=== PATIENT | male | born 1970 | race Caucasian/White ===

== ENCOUNTER 2021-09-19 11:15 | Emergency (ER) | payer OTHER, SELFPAY ==
[2021-09-19 11:22] VITALS: BP 151/100; PULSE 117; RESP 18; TEMP 36.6; O2SAT 98; BMI 22.4
--- NOTE | 2021-09-19 11:31 | ED_ITS ---
HPI - Overdose General Chief Complaint: Overdose Stated Complaint: FOUND UNRESP,NARCAN GIVEN, ALERT/ORIENTED NOW Time Seen by Provider: 09/19/21 11:29 Source: patient and EMS Mode of arrival: EMS Limitations: no limitations History of Present Illness HPI Narrative: 51 y/o male presents to the ER for evaluation after he accidentally overdosed on his prescribed Percocet mediation. He reports mixing them with alcohol. He reports drinking very heavily last night at least 10 nips of alcohol. He does not recall how many narcotic pills he took last night after he was drinking. He has little recollection at all of the evening. His friend found him unresponsive this morning and started CPR. On EMS arrival he was agonally breathing, given 2 doses of Narcan with improvement in respirations and mental status. He arrives to the ER AAO X3, nauseous and tachycardic. complaint: accidental overdose Onset (ago): unknown Intent: other (Life stressor) How Overdose Was Discovered: called family/friend Context: Accidental Overdose: was drinking then took pills Associated symptoms: depression Treatments Prior to Arrival: narcan Related Data Allergies Allergy/AdvReac Type Severity Reaction Status Date / Time No Known Allergies Allergy Verified 09/19/21 11:29 Review of Systems Review of Systems: Constitutional: No Fever, No Chills ENT/Mouth: No sore throat, No Rhinorrhea, No Swallowing Difficulty Cardiovascular: No Chest Pain, No SOB, No Orthopnea, No Edema Respiratory: No Cough, No Sputum, No Wheezing, No dyspnea Gastrointestinal: + Nausea, No Vomiting, No Diarrhea, No abdominal Pain Musculoskeletal: + joint pain, + Myalgias Skin: No Skin Lesions, No rash Neuro: No Weakness, No Numbness, No Dizziness, + Headache Psych: + Anxiety/Panic, + Depression, No SI Heme/Lymph: No Bruising PMFSH Past Medical History Medical History (Updated 09/19/21 @ 13:35 by ALBERTO Crwo) Cervical vertebral fusion HTN (hypertension) Social History Social History Alcohol intake: current Patient Tobacco Use Status: Never used Tobacco Use of substances other than those prescribed or required for medical reasons: Yes Substance Use Type: Opiates Advance Directives: No Advance Directives Information Provided: No Physical Exam Vital Signs: Vital Signs: Last Vital Signs Temp 97.8 F 09/19/21 11:22 Pulse 117 H 09/19/21 11:22 Resp 18 12/14/21 11:22 BP 151/100 H 09/19/21 11:22 Pulse Ox 98 09/19/21 11:22 BMI result Body Mass Index 22.4 Appearance: Alert. Oriented X3. No acute distress. Eyes: Pupils equal, round and reactive to light. ENT: Pharynx normal. Neck: Normal inspection. Neck supple. CVS: Tachycardic, regular rhythm. Pulses normal. No chest wall tenderness. Respiratory: No respiratory distress. Breath sounds normal. Abdomen: Soft and nontender. +BS x4 Skin: Skin warm and dry. Normal skin color. Normal skin turgor. No rashes. Extremities: No lower extremity edema. No track rocha Neuro: Oriented X 3. No motor deficit. No sensory deficit. Course Course Course Narrative: 51-year-old male with a history of chronic pain on chronic opiates, intermittent alcohol abuse who presents to the ER for evaluation after he was found actually breathing. He required Narcan x2. He is alert and oriented x3 on arrival he is tachycardic to the 110's and is nauseous. Zofran ordered. Will get Tylenol level given report of Percocet use as well as urine toxicology. Will monitor in the ER closely. Reevaluation(s) Reevaluation #1: Remains alert and oriented. Acetaminophen level is <1. Urine toxicology is positive for fentanyl, opiates, cocaine and marijuana. Patient admits to marijuana use only and has no idea where the fentanyl or cocaine is from. He admits to binge drinking last night and drink over tension nips in the setting of finding out his was cheating on him. He states this is not a frequent occurrence in that he binge drank and apparently took opiates in the setting of severe life stress. Reevaluation #2: Patient spoke with Alex from the care team. He will call someone from [facility] to set up therapy. He continues to deny intention or suicidal thoughts. He is declining need for any detox and states this is not a regular occurrence for him. He is stable for discharge home. MDM - Overdose Lab Data Result diagrams: 09/19/21 11:44 09/19/21 11:44 Labs: Lab Results 09/19/21 09/19/21 09/19/21 Range/Units 11:44 11:44 11:44 WBC 9.1 (4.8-10.8) X10*3/uL RBC 5.05 (4.60-5.80) X10*6/uL Hgb 16.7 (14.0-18.0) g/dl Hct 46.4 (42.0-52.0) % MCV 91.9 (80.0-98.0) fL MCH 33.1 H (27.0-33.0) pg MCHC 36.0 (31.0-36.0) g/dl RDW 11.9 (11.0-16.0) % Plt Count 304 (160-400) X10*3/uL MPV 9.1 L (9.4-12.4) fL Immature Gran % (Auto) 0.6 H (0.0-0.4) % Neut % (Auto) 67.9 (45-73) % Lymph % (Auto) 24.3 (20-40) % [place] % (Auto) 6.6 (2-11) % Eos % (Auto) 0.2 (0-4) % Baso % (Auto) 0.4 (0-2) % Lymph # (Auto) 2.2 (1.2-4.9) X10*3/uL [place] # (Auto) 0.6 (0.1-1.2) X10*3/uL Eos # (Auto) 0.0 (0.0-0.4) X10*3/uL Baso # (Auto) 0.0 (0.0-0.2) X10*3/uL Abs Immat Gran (auto) 0.05 H (0.00-0.03) X10*3/uL Absolute Neuts (auto) 6.2 (2.0-8.3) x10*3/uL Absolute Nucleated RBC 0.000 (0.0-0.012) X10*3/uL Nucleated RBC % (auto) 0.0 (0.0-0.2) /100WBC Sodium 143 (135-145) mmol/L Potassium 3.9 (3.3-5.1) mmol/L Chloride 105 (96-108) mmol/L Carbon Dioxide 25 (22-29) mmol/L Anion Gap 17 (12-20) BUN 13 (9-16) mg/dL Creatinine 1.27 (0.5-1.4) mg/dL Estim Creat Clear Calc 72.6 Estimated GFR > 60 Random Glucose 215 H (60-115) mg/dL Calcium 9.2 (8.4-10.2) mg/dL Magnesium 2.4 (1.6-2.6) mg/dL Total Bilirubin 0.8 (0.0-1.0) mg/dL Direct Bilirubin 0.4 (0.0-0.5) mg/dL AST 28 (5-37) U/L ALT 37 (0-40) U/L Alkaline Phosphatase 50 (39-117) U/L Total Protein 7.9 (6.5-8.0) g/dL Albumin 4.8 (3.5-5.0) g/dL Urine Opiates Screen (Not Detect) Urine Fentanyl Screen (Not Detect) Acetaminophen < 1 (<30) mcg/mL Ur Barbiturates Screen (Not Detect) Ur Phencyclidine Scrn (Not Detect) Ur Amphetamines Screen (Not Detect) U Benzodiazepines Scrn (Not Detect) Urine Cocaine Screen (Not Detect) U Marijuana (THC) Screen (Not Detect) Ethyl Alcohol 279 mg/dL 09/19/21 Range/Units 13:01 WBC (4.8-10.8) X10*3/uL RBC (4.60-5.80) X10*6/uL Hgb (14.0-18.0) g/dl Hct (42.0-52.0) % MCV (80.0-98.0) fL MCH (27.0-33.0) pg MCHC (31.0-36.0) g/dl RDW (11.0-16.0) % Plt Count (160-400) X10*3/uL MPV (9.4-12.4) fL Immature Gran % (Auto) (0.0-0.4) % Neut % (Auto) (45-73) % Lymph % (Auto) (20-40) % [place] % (Auto) (2-11) % Eos % (Auto) (0-4) % Baso % (Auto) (0-2) % Lymph # (Auto) (1.2-4.9) X10*3/uL [place] # (Auto) (0.1-1.2) X10*3/uL Eos # (Auto) (0.0-0.4) X10*3/uL Baso # (Auto) (0.0-0.2) X10*3/uL Abs Immat Gran (auto) (0.00-0.03) X10*3/uL Absolute Neuts (auto) (2.0-8.3) x10*3/uL Absolute Nucleated RBC (0.0-0.012) X10*3/uL Nucleated RBC % (auto) (0.0-0.2) /100WBC Sodium (135-145) mmol/L Potassium (3.3-5.1) mmol/L Chloride (96-108) mmol/L Carbon Dioxide (22-29) mmol/L Anion Gap (12-20) BUN (9-16) mg/dL Creatinine (0.5-1.4) mg/dL Estim Creat Clear Calc Estimated GFR Random Glucose (60-115) mg/dL Calcium (8.4-10.2) mg/dL Magnesium (1.6-2.6) mg/dL Total Bilirubin (0.0-1.0) mg/dL Direct Bilirubin (0.0-0.5) mg/dL AST (5-37) U/L ALT (0-40) U/L Alkaline Phosphatase (39-117) U/L Total Protein (6.5-8.0) g/dL Albumin (3.5-5.0) g/dL Urine Opiates Screen POSITIVE H (Not Detect) Urine Fentanyl Screen POSITIVE H (Not Detect) Acetaminophen (<30) mcg/mL Ur Barbiturates Screen Not Detected (Not Detect) Ur Phencyclidine Scrn Not Detected (Not Detect) Ur Amphetamines Screen Not Detected (Not Detect) U Benzodiazepines Scrn Not Detected (Not Detect) Urine Cocaine Screen POSITIVE H (Not Detect) U Marijuana (THC) Screen POSITIVE H (Not Detect) Ethyl Alcohol mg/dL Critical Care Time Critical Care Time Critical Care Time: No Discharge Plan Discharge Clinical Impression: Drug overdose Qualifiers: Encounter type: initial encounter Injury intent: accidental or unintentional Qualified Code(s): T50.901A - Poisoning by unspecified drugs, medicaments and biological substances, accidental (unintentional), initial encounter Alcohol intoxication Qualifiers: Complication of substance-induced condition: with unspecified complication Qualified Code(s): F10.929 - Alcohol use, unspecified with intoxication, unspecified Patient Disposition: Home, Self-Care Instructions: Alcohol Intoxication (ED), Adult Overdose (ED) Additional Instructions: Your urine test was positive for opiates, fentanyl, cocaine and marijuana. Recommend abstaining from alcohol. Recommend detox. Only take your prescribed medication exactly as directed. Follow-up with your surgeon and doctor. Recommend follow-up with a therapist for ongoing stressors.
[2021-09-19] MEDS: ondansetron HCL 4 MG/2 ML VIAL IVPUSH (11:48)
--- NOTE | 2021-09-19 11:48 | MHC.RECOVSUP ---
Recovery Support note: Patient is a 51 year old [place] speaking male who presented to [facility] after an accidental overdose. This property underwriter met with patient to discuss substance use and recovery supports. Patient reports he had surgery several months ago and is taking prescription pain medication. Patient reports he was also consuming alcohol this morning. Discussed with patient the sedating effects of alcohol and Percocet and the danger of combining them. Patient acknowledged. Patient reports he has never overdosed before and that he is shaken up by what happened and that he has never felt worse before. Education on narcan provided. Patient reports his alcohol use is not problematic and that he doesn't drink often. This property underwriter pointed out that it is early in the day and patient acknowledged. Patient did not wish to discuss his alcohol use further. Patient understands that staff are available to discuss this and provide support if he changes his mind. Patient understands there are supports in the community if he ends up needing additional support after discharge. Patient declines SUDE assessment.
--- NOTE | 2021-09-19 11:49 | PC.NURSE ---
patient a&ox3, labs drawn, pt medicated per order, pt aware we need urine
[2021-09-19 11:50] LABS: MANUAL DIFF FLAG NO
[2021-09-19 11:52] LABS: Basophils Percent Auto 0.4 % (0-2); Eosinophils Percent Auto 0.2 % (0-4); Hematocrit 46.4 % (42.0-52.0); Hemoglobin 16.7 g/dl (14.0-18.0); Imm Gran Abs Auto 0.05 X10*3/uL (0.00-0.03); Imm Gran Pct Auto 0.6 % (0.0-0.4); Lymphocytes Absolute Auto 2.2 X10*3/uL (1.2-4.9); Lymphocytes Percent Auto 24.3 % (20-40); Mean Corpuscular Hemoglobin 33.1 pg (27.0-33.0); Mean Corpuscular Volume 91.9 fL (80.0-98.0); Mean Platelet Volume 9.1 fL (9.4-12.4); Monocytes Absolute Auto 0.6 X10*3/uL (0.1-1.2); Monocytes Percent Auto 6.6 % (2-11); Neutrophils Absolute Auto 6.2 x10*3/uL (2.0-8.3); Neutrophils Percent Auto 67.9 % (45-73); Platelet Count 304 X10*3/uL (160-400); Red Blood Count 5.05 X10*6/uL (4.60-5.80); Red Cell Distribution Width 11.9 % (11.0-16.0); White Blood Count 9.1 X10*3/uL (4.8-10.8)
[2021-09-19 12:07] LABS: Ethanol 279 mg/dL
[2021-09-19 12:10] LABS: Acetaminophen LAB < 1 mcg/mL (<30); Alanine Aminotransferase 37 U/L (0-40); Albumin Level 4.8 g/dL (3.5-5.0); Alkaline Phosphatase 50 U/L (39-117); Anion Gap 17 (12-20); Aspartate Amino Transferase 28 U/L (5-37); Bilirubin Direct 0.4 mg/dL (0.0-0.5); Bilirubin Total 0.8 mg/dL (0.0-1.0); Blood Urea Nitrogen 13 mg/dL (9-16); Calcium 9.2 mg/dL (8.4-10.2); Carbon Dioxide 25 mmol/L (22-29); Chloride 105 mmol/L (96-108); Creatinine Clr Calc Pharmacy 72.6; Estimated Glomerular Filt Rate > 60; Glucose Random 215 mg/dL (60-115); Magnesium 2.4 mg/dL (1.6-2.6); Potassium 3.9 mmol/L (3.3-5.1); Sodium 143 mmol/L (135-145); Total Protein 7.9 g/dL (6.5-8.0)
[2021-09-19 13:22] LABS: Amphetamine Screen Urine Not Detected (Not Detect); Barbiturates, Urine Not Detected (Not Detect); Benzodiazepines Screen Urine Not Detected (Not Detect); Cannabinoid Screen Urine POSITIVE (Not Detect); Cocaine Screen Urine POSITIVE (Not Detect); Fentanyl, urine POSITIVE (Not Detect); Opiate Screen Urine POSITIVE (Not Detect); Phencyclidine Screen Urine Not Detected (Not Detect)
[2021-09-19] MEDS: 0.9 % Sodium Chloride 1,000 ML 999 ML IVCONT (13:38)
--- NOTE | 2021-09-19 14:10 | MHC.RECOVSUP ---
Recovery Support note: Tox screen revealed alcohol, cannabis, cocaine, fentanyl and opiates. This screen writer met with patient to discuss these results. Patient reports he drank himself into a stupor after a marital issue came to light, causing him great distress. Patient reports he bought a pill off the street thinking it was oxycodone. Discussed harm reduction and educated patient on the risk of fentanyl exposure when buying street drugs. Patient acknowledged, states this experience has been eye opening. Patient reports never in a million years did I think I would be sitting in the hospital after an overdose. Patient reports he does not drink regularly and that he only drank due to the stressful situation. Discussed outpatient therapy with patient. Patient is agreeable to receiving a referral to [facility] and patient accepted a list of therapy and counseling agencies in the area. Discussed case with patient's ED provider.
[2021-09-19 14:43] VITALS: BP 140/89
== END 2021-09-19 14:51 | disposition home or self-care (01) ==
PROVIDERS: Physician Assistant; Emergency Provider Emergency Medicine; PCP Internal Medicine
DX: T50.911A Poisoning by multiple unspecified drugs, medicaments and biological substances, accidental (unintentional), initial encounter (principal); R40.4 Transient alteration of awareness; Y92.9 Unspecified place or not applicable; F10.929 Alcohol use, unspecified with intoxication, unspecified; Y90.8 Blood alcohol level of 240 mg/100 ml or more; R00.0 Tachycardia, unspecified; R11.0 Nausea
CPT/HCPCS: 36415; 80048; 80076; 80143; 80307; 82077; 83735; 85025; 96361; 96374; 99284; J2405

== ENCOUNTER 2021-09-20 11:25 | Inpatient (IN) | payer OTHER, SELFPAY ==
--- NOTE | 2021-09-20 11:36 | ED.PSYCH ---
HPI - Psych General Chief Complaint: Psychiatric Symptoms <Josephine Miller DO - Last Filed: 09/20/21 15:09> Stated Complaint: SECTION 12 FOR SI STATEMENTS <Josephine Miller DO - Last Filed: 09/20/21 15:09> Time Seen by Provider: 09/20/21 11:37 <Josephine Miller DO - Last Filed: 09/20/21 15:09> Source: patient, EMS and old records reviewed <Josephine Miller DO - Last Filed: 09/20/21 15:09> Mode of arrival: EMS <Josephine Miller DO - Last Filed: 09/20/21 15:09> Limitations: no limitations <Josephine Miller DO - Last Filed: 09/20/21 15:09> History of Present Illness MD complaint: feels depressed, substance abuse and alcohol abuse <Josephine Miller DO - Last Filed: 09/20/21 15:09> Onset (ago): week(s) <Josephine Miller DO - Last Filed: 09/20/21 15:09> Duration: constant <Josephine Miller DO - Last Filed: 09/20/21 15:09> History of same: Yes <Josephine Miller DO - Last Filed: 09/20/21 15:09> Relieving factors: none <Josephine Miller DO - Last Filed: 09/20/21 15:09> Exacerbating factors: alcohol and drug use <Josephine Miller DO - Last Filed: 09/20/21 15:09> Context: recent alcohol abuse and recent drug abuse (snorted a percocet yesterday seen here for overdose reported as accidental ) <Josephine Miller DO - Last Filed: 09/20/21 15:09> Associated psychiatric symptoms: depression and suicidal ideation (he adamantly denies this though section 12 states he sent SI text messages and told them he took a bottle of BP medications but he denies this) <Josephine Miller DO - Last Filed: 09/20/21 15:09> Associated symptoms: denies other symptoms <Josephine Miller DO - Last Filed: 09/20/21 15:09> Treatments prior to arrival: placed on mental health hold <Josephine Miller DO - Last Filed: 09/20/21 15:09> Related Data Home Medications: Home Medications Medication Instructions Recorded Confirmed atorvastatin 20 mg tablet 1 tab PO BEDTIME 09/20/21 09/20/21 lisinopril 20 mg tablet 1 tab PO DAILY 09/20/21 09/20/21 multivitamin 1 tab PO DAILY 09/20/21 09/20/21 <Josephine Miller DO - Last Filed: 09/20/21 15:09> Allergies/Adverse Reactions: Allergies Allergy/AdvReac Type Severity Reaction Status Date / Time No Known Allergies Allergy Verified 09/19/21 11:29 <Josephine Miller DO - Last Filed: 09/20/21 15:09> Review of Systems Review of Systems: Constitutional : No Fever, No Chills ENT/Mouth : No Ear Pain, No Nasal Congestion, No sore throat Eyes: No Eye Pain, No Swelling, No Redness Cardiovascular : No Chest Pain, No SOB Respiratory : No Cough, No Sputum, No Dyspnea Gastrointestinal : No Nausea, No Vomiting, No Diarrhea, No Hematochezia, No Melena Genitourinary : No Dysuria, No Urinary Frequency, No Hematuria Musculoskeletal : No Myalgias Skin : No Skin Lesions, No rash Neuro : No Weakness, No Numbness, No Paresthesias, No Dizziness, No Headache Psych : positive Anxiety, positive Depression, DENIES SI/HI Heme/Lymph: No Lymphadenopathy Endocrine : No Polyuria, No Polydipsia All other systems reviewed and are negative <Josephine Miller DO - Last Filed: 09/20/21 15:09> [facility] Past Medical History Attestation statement: The following information was validated with the patient. <Josephine Miller DO - Last Filed: 09/20/21 15:09> Medical History: Medical History Cervical vertebral fusion HTN (hypertension) <Josephine Miller DO - Last Filed: 09/20/21 15:09> Social History Social History: Social History Alcohol intake: current Alcohol intake frequency: other Patient Tobacco Use Status: Never used Tobacco Use of substances other than those prescribed or required for medical reasons: Yes Substance Use Type: Marijuana Advance Directives: No Advance Directives Information Provided: No <Josephine MillerDO - Last Filed: 09/20/21 15:09> Physical Exam Vital Signs: Vital Signs: Last Vital Signs Temp 98.2 F 09/20/21 11:55 Pulse 97 09/20/21 13:18 Resp 16 09/20/21 13:18 BP 146/88 H 09/20/21 13:18 Pulse Ox 96 09/20/21 13:18 BMI result Body Mass Index 24.4 <Josephine MillerDO - Last Filed: 09/20/21 15:09> Vital Signs: Last Vital Signs Temp 98.2 F 09/20/21 11:55 Pulse 97 09/20/21 13:18 Resp 16 09/20/21 13:18 BP 146/88 H 09/20/21 13:18 Pulse Ox 96 09/20/21 13:18 BMI result Body Mass Index 24.4 <ALBERTO Crow - Last Filed: 09/20/21 15:55> Appearance: Alert. Oriented X3. No acute distress. Eyes: Pupils equal, round and reactive to light. ENT: Pharynx normal. Neck: Normal inspection. Neck supple. CVS: Normal heart rate and rhythm. Pulses normal. Respiratory: No respiratory distress. Breath sounds normal. Abdomen: Soft and non-tender. Skin: Skin warm and dry. Normal skin color. Normal skin turgor. Extremities: No lower extremity edema. No calf ttp Neuro: Oriented X 3. No motor deficit. No sensory deficit. CN 2-12 Psych: denies SI to me, no HI. States he is not hopeless and drank and used but did not overdose and is not suicidal <Josephine MillerDO - Last Filed: 09/20/21 15:09> Course Reevaluation(s) Reevaluation #1: CARE team reached out to who is concerned for his safety. He can be very manipulative and deny things/say the right things. Planning for full assessment once he is clinically sober but given history and presentation he will require inpatient level of care. Plan to admit to [address] as there is a bed available for him. <ALBERTO Crow - Last Filed: 09/20/21 15:55> MDM - Psych MDM Narrative Medical decision making narrative: 51 yo male sent here on section 12 for substance abuse and SI statements in the form of text messages - also possible reported BP medication overdose - at this time he is HTNive and anxious. Will obtain labs, EKG, CARE team consult. <Josephine Miller DO - Last Filed: 09/20/21 15:09> Lab Data Result diagrams: : 09/20/21 15:32 09/20/21 14:11 <Josephine Miller DO - Last Filed: 09/20/21 15:09> Labs: Lab Results 09/20/21 09/20/21 09/20/21 Range/Units 12:33 13:28 14:11 WBC (4.8-10.8) X10*3/uL RBC (4.60-5.80) X10*6/uL Hgb (14.0-18.0) g/dl Hct (42.0-52.0) % MCV (80.0-98.0) fL MCH (27.0-33.0) pg MCHC (31.0-36.0) g/dl RDW (11.0-16.0) % Plt Count (160-400) X10*3/uL MPV (9.4-12.4) fL Immature Gran % (Auto) (0.0-0.4) % Neut % (Auto) (45-73) % Lymph % (Auto) (20-40) % [place] % (Auto) (2-11) % Eos % (Auto) (0-4) % Baso % (Auto) (0-2) % Lymph # (Auto) (1.2-4.9) X10*3/uL [place] # (Auto) (0.1-1.2) X10*3/uL Eos # (Auto) (0.0-0.4) X10*3/uL Baso # (Auto) (0.0-0.2) X10*3/uL Abs Immat Gran (auto) (0.00-0.03) X10*3/uL Absolute Neuts (auto) (2.0-8.3) x10*3/uL Absolute Nucleated RBC (0.0-0.012) X10*3/uL Nucleated RBC % (auto) (0.0-0.2) /100WBC Sodium 141 (135-145) mmol/L Potassium 3.8 (3.3-5.1) mmol/L Chloride 107 (96-108) mmol/L Carbon Dioxide 24 (22-29) mmol/L Anion Gap 14 (12-20) BUN 11 (9-16) mg/dL Creatinine 1.02 (0.5-1.4) mg/dL Estim Creat Clear Calc 93.3 Estimated GFR > 60 Random Glucose 134 H D (60-115) mg/dL Calcium 8.5 D (8.4-10.2) mg/dL Magnesium 2.3 (1.6-2.6) mg/dL Total Bilirubin 1.0 (0.0-1.0) mg/dL Direct Bilirubin 0.5 (0.0-0.5) mg/dL AST 66 H (5-37) U/L ALT 62 H (0-40) U/L Alkaline Phosphatase 50 (39-117) U/L Total Protein 6.9 (6.5-8.0) g/dL Albumin 4.4 (3.5-5.0) g/dL Salicylates < 5.0 L (15-30) mg/dL Urine Opiates Screen Not Detected (Not Detect) Urine Fentanyl Screen POSITIVE H (Not Detect) Acetaminophen < 1 (<30) mcg/mL Ur Barbiturates Screen Not Detected (Not Detect) Ur Phencyclidine Scrn Not Detected (Not Detect) Ur Amphetamines Screen Not Detected (Not Detect) U Benzodiazepines Scrn Not Detected (Not Detect) Urine Cocaine Screen POSITIVE H (Not Detect) U Marijuana (THC) Screen POSITIVE H (Not Detect) COVID-19 (NOAH) Negative (Negative) COVID-19 Clin Com See Note 09/20/21 Range/Units 15:32 WBC 5.4 (4.8-10.8) X10*3/uL RBC 4.33 L (4.60-5.80) X10*6/uL Hgb 14.3 (14.0-18.0) g/dl Hct 39.3 L (42.0-52.0) % MCV 90.8 (80.0-98.0) fL MCH 33.0 (27.0-33.0) pg MCHC 36.4 H (31.0-36.0) g/dl RDW 11.6 (11.0-16.0) % Plt Count 237 (160-400) X10*3/uL MPV 9.2 L (9.4-12.4) fL Immature Gran % (Auto) 0.4 (0.0-0.4) % Neut % (Auto) 51.8 (45-73) % Lymph % (Auto) 37.0 (20-40) % [place] % (Auto) 9.8 (2-11) % Eos % (Auto) 0.4 (0-4) % Baso % (Auto) 0.6 (0-2) % Lymph # (Auto) 2.0 (1.2-4.9) X10*3/uL [place] # (Auto) 0.5 (0.1-1.2) X10*3/uL Eos # (Auto) 0.0 (0.0-0.4) X10*3/uL Baso # (Auto) 0.0 (0.0-0.2) X10*3/uL Abs Immat Gran (auto) 0.02 (0.00-0.03) X10*3/uL Absolute Neuts (auto) 2.8 (2.0-8.3) x10*3/uL Absolute Nucleated RBC 0.000 (0.0-0.012) X10*3/uL Nucleated RBC % (auto) 0.0 (0.0-0.2) /100WBC Sodium (135-145) mmol/L Potassium (3.3-5.1) mmol/L Chloride (96-108) mmol/L Carbon Dioxide (22-29) mmol/L Anion Gap (12-20) BUN (9-16) mg/dL Creatinine (0.5-1.4) mg/dL Estim Creat Clear Calc Estimated GFR Random Glucose (60-115) mg/dL Calcium (8.4-10.2) mg/dL Magnesium (1.6-2.6) mg/dL Total Bilirubin (0.0-1.0) mg/dL Direct Bilirubin (0.0-0.5) mg/dL AST (5-37) U/L ALT (0-40) U/L Alkaline Phosphatase (39-117) U/L Total Protein (6.5-8.0) g/dL Albumin (3.5-5.0) g/dL Salicylates (15-30) mg/dL Urine Opiates Screen (Not Detect) Urine Fentanyl Screen (Not Detect) Acetaminophen (<30) mcg/mL Ur Barbiturates Screen (Not Detect) Ur Phencyclidine Scrn (Not Detect) Ur Amphetamines Screen (Not Detect) U Benzodiazepines Scrn (Not Detect) Urine Cocaine Screen (Not Detect) U Marijuana (THC) Screen (Not Detect) COVID-19 (NOAH) (Negative) COVID-19 Clin Com <Josephine Miller, DO - Last Filed: 09/20/21 15:09> Lab Results 09/20/21 09/20/21 09/20/21 Range/Units 12:33 13:28 14:11 WBC (4.8-10.8) X10*3/uL RBC (4.60-5.80) X10*6/uL Hgb (14.0-18.0) g/dl Hct (42.0-52.0) % MCV (80.0-98.0) fL MCH (27.0-33.0) pg MCHC (31.0-36.0) g/dl RDW (11.0-16.0) % Plt Count (160-400) X10*3/uL MPV (9.4-12.4) fL Immature Gran % (Auto) (0.0-0.4) % Neut % (Auto) (45-73) % Lymph % (Auto) (20-40) % [place] % (Auto) (2-11) % Eos % (Auto) (0-4) % Baso % (Auto) (0-2) % Lymph # (Auto) (1.2-4.9) X10*3/uL [place] # (Auto) (0.1-1.2) X10*3/uL Eos # (Auto) (0.0-0.4) X10*3/uL Baso # (Auto) (0.0-0.2) X10*3/uL Abs Immat Gran (auto) (0.00-0.03) X10*3/uL Absolute Neuts (auto) (2.0-8.3) x10*3/uL Absolute Nucleated RBC (0.0-0.012) X10*3/uL Nucleated RBC % (auto) (0.0-0.2) /100WBC Sodium 141 (135-145) mmol/L Potassium 3.8 (3.3-5.1) mmol/L Chloride 107 (96-108) mmol/L Carbon Dioxide 24 (22-29) mmol/L Anion Gap 14 (12-20) BUN 11 (9-16) mg/dL Creatinine 1.02 (0.5-1.4) mg/dL Estim Creat Clear Calc 93.3 Estimated GFR > 60 Random Glucose 134 H D (60-115) mg/dL Calcium 8.5 D (8.4-10.2) mg/dL Magnesium 2.3 (1.6-2.6) mg/dL Total Bilirubin 1.0 (0.0-1.0) mg/dL Direct Bilirubin 0.5 (0.0-0.5) mg/dL AST 66 H (5-37) U/L ALT 62 H (0-40) U/L Alkaline Phosphatase 50 (39-117) U/L Total Protein 6.9 (6.5-8.0) g/dL Albumin 4.4 (3.5-5.0) g/dL Salicylates < 5.0 L (15-30) mg/dL Urine Opiates Screen Not Detected (Not Detect) Urine Fentanyl Screen POSITIVE H (Not Detect) Acetaminophen < 1 (<30) mcg/mL Ur Barbiturates Screen Not Detected (Not Detect) Ur Phencyclidine Scrn Not Detected (Not Detect) Ur Amphetamines Screen Not Detected (Not Detect) U Benzodiazepines Scrn Not Detected (Not Detect) Urine Cocaine Screen POSITIVE H (Not Detect) U Marijuana (THC) Screen POSITIVE H (Not Detect) COVID-19 (NOAH) Negative (Negative) COVID-19 Clin Com See Note 09/20/21 Range/Units 15:32 WBC 5.4 (4.8-10.8) X10*3/uL RBC 4.33 L (4.60-5.80) X10*6/uL Hgb 14.3 (14.0-18.0) g/dl Hct 39.3 L (42.0-52.0) % MCV 90.8 (80.0-98.0) fL MCH 33.0 (27.0-33.0) pg MCHC 36.4 H (31.0-36.0) g/dl RDW 11.6 (11.0-16.0) % Plt Count 237 (160-400) X10*3/uL MPV 9.2 L (9.4-12.4) fL Immature Gran % (Auto) 0.4 (0.0-0.4) % Neut % (Auto) 51.8 (45-73) % Lymph % (Auto) 37.0 (20-40) % [place] % (Auto) 9.8 (2-11) % Eos % (Auto) 0.4 (0-4) % Baso % (Auto) 0.6 (0-2) % Lymph # (Auto) 2.0 (1.2-4.9) X10*3/uL [place] # (Auto) 0.5 (0.1-1.2) X10*3/uL Eos # (Auto) 0.0 (0.0-0.4) X10*3/uL Baso # (Auto) 0.0 (0.0-0.2) X10*3/uL Abs Immat Gran (auto) 0.02 (0.00-0.03) X10*3/uL Absolute Neuts (auto) 2.8 (2.0-8.3) x10*3/uL Absolute Nucleated RBC 0.000 (0.0-0.012) X10*3/uL Nucleated RBC % (auto) 0.0 (0.0-0.2) /100WBC Sodium (135-145) mmol/L Potassium (3.3-5.1) mmol/L Chloride (96-108) mmol/L Carbon Dioxide (22-29) mmol/L Anion Gap (12-20) BUN (9-16) mg/dL Creatinine (0.5-1.4) mg/dL Estim Creat Clear Calc Estimated GFR Random Glucose (60-115) mg/dL Calcium (8.4-10.2) mg/dL Magnesium (1.6-2.6) mg/dL Total Bilirubin (0.0-1.0) mg/dL Direct Bilirubin (0.0-0.5) mg/dL AST (5-37) U/L ALT (0-40) U/L Alkaline Phosphatase (39-117) U/L Total Protein (6.5-8.0) g/dL Albumin (3.5-5.0) g/dL Salicylates (15-30) mg/dL Urine Opiates Screen (Not Detect) Urine Fentanyl Screen (Not Detect) Acetaminophen (<30) mcg/mL Ur Barbiturates Screen (Not Detect) Ur Phencyclidine Scrn (Not Detect) Ur Amphetamines Screen (Not Detect) U Benzodiazepines Scrn (Not Detect) Urine Cocaine Screen (Not Detect) U Marijuana (THC) Screen (Not Detect) COVID-19 (NOAH) (Negative) COVID-19 Clin Com <ALBERTO Crow - Last Filed: 09/20/21 15:55> ECG Data Attestation: I personally reviewed and interpreted this ECG as follows: <Josephine Miller DO - Last Filed: 09/20/21 15:09> ECG interpretation date: 09/20/21 <Josephine Miller DO - Last Filed: 09/20/21 15:09> ECG interpretation time: 15:08 <Josephine Miller DO - Last Filed: 09/20/21 15:09> Interpretation: Rate: 97 Rhythm: NSR [place]: normal Normal P waves. Normal ALLIE. Normal QRS complex. ST T wave : no ISSAC, normal qTC: normal prior studies: no acute ischemia The study has been interpreted contemporaneously by me. . <Josephine Miller DO - Last Filed: 09/20/21 15:09> Discharge Plan Discharge Clinical Impression: Active substance abuse <Josephine Miller DO - Last Filed: 09/20/21 15:09> Prescriptions: No Action atorvastatin 20 mg tablet 1 tab PO BEDTIME RF: 0 lisinopril 20 mg tablet 1 tab PO DAILY RF: 0 multivitamin Tablet 1 tab PO DAILY RF: 0 <Josephine Miller DO - Last Filed: 09/20/21 15:09>
[2021-09-20 11:45] VITALS: BP 150/100; BP 168/122; PULSE 109; RESP 18; TEMP 36.8; O2SAT 96; O2SAT 97; BMI 24.4
[2021-09-20 11:55] VITALS: BP 168/122; PULSE 109; RESP 18; TEMP 36.8; O2SAT 96
--- NOTE | 2021-09-20 11:56 | ECG_ITS ---
Test Reason : MEDICAL CLEARANCE Blood Pressure : / mmHG Vent. Rate : 097 BPM Atrial Rate : 097 BPM P-R Int : 148 ms QRS Dur : 082 ms QT Int : 342 ms P-R-T Axes : 062 002 057 degrees QTc Int : 434 ms Normal sinus rhythm Possible Septal infarct , age undetermined Borderline ECG No previous ECGs available Referred By: Josephine Miller Electronically Signed By:OWEN PASTRANA MD
--- NOTE | 2021-09-20 12:29 | PHA.MEDREC ---
Pharmacy Consult ? Medication Reconciliation Pharmacy has completed the medication reconciliation. Patient does not take baclofen anymore.
[2021-09-20 12:57] LABS: COVID-19 Test Negative (Negative)
[2021-09-20 13:18] VITALS: BP 146/88; PULSE 97; RESP 16; O2SAT 96
[2021-09-20 14:01] LABS: Amphetamine Screen Urine Not Detected (Not Detect); Barbiturates, Urine Not Detected (Not Detect); Benzodiazepines Screen Urine Not Detected (Not Detect); Cannabinoid Screen Urine POSITIVE (Not Detect); Cocaine Screen Urine POSITIVE (Not Detect); Fentanyl, urine POSITIVE (Not Detect); Opiate Screen Urine Not Detected (Not Detect); Phencyclidine Screen Urine Not Detected (Not Detect)
[2021-09-20 14:41] LABS: Acetaminophen LAB < 1 mcg/mL (<30); Alanine Aminotransferase 62 U/L (0-40); Albumin Level 4.4 g/dL (3.5-5.0); Alkaline Phosphatase 50 U/L (39-117); Anion Gap 14 (12-20); Aspartate Amino Transferase 66 U/L (5-37); Bilirubin Direct 0.5 mg/dL (0.0-0.5); Blood Urea Nitrogen 11 mg/dL (9-16); Calcium 8.5 mg/dL (8.4-10.2); Carbon Dioxide 24 mmol/L (22-29); Chloride 107 mmol/L (96-108); Creatinine Clr Calc Pharmacy 93.3; Estimated Glomerular Filt Rate > 60; Glucose Random 134 mg/dL (60-115); Magnesium 2.3 mg/dL (1.6-2.6); Potassium 3.8 mmol/L (3.3-5.1); Salicylate < 5.0 mg/dL (15-30); Sodium 141 mmol/L (135-145); Total Protein 6.9 g/dL (6.5-8.0)
[2021-09-20 15:40] LABS: MANUAL DIFF FLAG NO
[2021-09-20 15:48] LABS: Basophils Percent Auto 0.6 % (0-2); Eosinophils Percent Auto 0.4 % (0-4); Hematocrit 39.3 % (42.0-52.0); Hemoglobin 14.3 g/dl (14.0-18.0); Imm Gran Abs Auto 0.02 X10*3/uL (0.00-0.03); Imm Gran Pct Auto 0.4 % (0.0-0.4); Mean Corpuscular HGB Conc 36.4 g/dl (31.0-36.0); Mean Corpuscular Volume 90.8 fL (80.0-98.0); Mean Platelet Volume 9.2 fL (9.4-12.4); Monocytes Absolute Auto 0.5 X10*3/uL (0.1-1.2); Monocytes Percent Auto 9.8 % (2-11); Neutrophils Absolute Auto 2.8 x10*3/uL (2.0-8.3); Neutrophils Percent Auto 51.8 % (45-73); Platelet Count 237 X10*3/uL (160-400); Red Blood Count 4.33 X10*6/uL (4.60-5.80); Red Cell Distribution Width 11.6 % (11.0-16.0); White Blood Count 5.4 X10*3/uL (4.8-10.8)
[2021-09-20 15:57] LABS: Ethanol 268 mg/dL
[2021-09-20 15:59] LABS: Alanine Aminotransferase 61 U/L (0-40); Albumin Level 4.1 g/dL (3.5-5.0); Alkaline Phosphatase 45 U/L (39-117); Aspartate Amino Transferase 64 U/L (5-37); Bilirubin Direct 0.5 mg/dL (0.0-0.5); Bilirubin Total 0.9 mg/dL (0.0-1.0); Total Protein 6.4 g/dL (6.5-8.0)
[2021-09-20 16:02] VITALS: BP 130/80; PULSE 104; TEMP 36.7; O2SAT 99
[2021-09-20] MEDS: LORazepam 1 MG TABLET 2 MG PO (19:45)
[2021-09-21] MEDS: LORazepam 1 MG TABLET PO ×2 (01:10→21:16)
--- NOTE | 2021-09-21 06:14 | PC.ADMIT ---
Pt is a 51 year old male admitted to the unit after referral from the CARE Team at [facility]. Arrived on unit at 0001. Legal status: CV. Medical issues: cervical vertebral fusion, HTN. Substance use: Pt reports marijuana use approx. every other day to help manage anxiety symptoms. He also reported occasional alcohol use, however this past weekend went on a binge and drank approx. 10 nips in 2 days. Denied other substance use though CANALES was positive for cocaine, fentanyl and marijuana. Per crisis report he reported snorting a percocet for the first time, later finding out that it was fentanyl and cocaine. Precipitant: Pt recently found out that his has been having an affair, after discovering photos of his and an unidentified male in her phone. He has since been making suicidal statements to his via text and consuming large amounts of alcohol. 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 Per crisis eval, on 09/19 pt was brought to the ED by EMS after what was believed to be an accidental overdose on his prescribed Percocet; pt was found unresponsive by a friend who had to initiate CPR. Pt was later discharged from the hospital. At the time of admission assessment pt presents as anxious, stating that he does not feel he needs to be here. He denies suicidal thoughts, denies hallucinations. He is interested in having outpatient providers arranged. Nurse to nurse completed prior to admission. Treatment plan initiated. Kasia Pena APRN notified of admission and orders obtained. Pt contracts for unit safety. *Pt signed a 3 day notice which will be up on . 09/26/21.
[2021-09-21 06:16] VITALS: BP 163/88; PULSE 107; TEMP 36.9; O2SAT 98
[2021-09-21 07:00] VITALS: BMI 23.4
[2021-09-21 08:28] VITALS: BP 189/91; PULSE 96; RESP 16; TEMP 37; O2SAT 99
[2021-09-21 08:34] VITALS: BP 189/91; PULSE 96
[2021-09-21] MEDS: lisinopriL 20 MG TABLET PO (08:34)
[2021-09-21] MEDS: Multivitamin TABLET 1 TAB PO (08:35)
--- NOTE | 2021-09-21 16:54 | P.HPPS_ITS ---
HPI Date of Service: 09/21/21 Chief Complaint: Major Depression, Alcohol Use Disorder, SI HPI Narrative: pt recently found out his had an affair several years ago - he initially thought it was happening recently and reacted very negatively. he lapsed to use of what he thought was percocet bought on the street - which ended up being fentanyl and cocaine, and he overdosed on it. he was seen int he ED and then discharged home. he made suicidal threats to his , who called his friends, who called the police, who did a safety check and brought him to the hospital, and then he was psychiatrically hospitalized. on interview today, pt's has come to see him on the unit and they met for 30 minutes. she has apologized to him and assures him there is no ongoing affair. they plan to try to reconcile, and he will attend individual therapy and they will do couples therapy. he denies any substance misuse other than as described above, he denies any mental health history, he declines to consider medications for anxiety or depression. MD informs him that he may be discharged tomorrow if collateral from his supports his description of their interaction today. 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 Substance History: occasional beer. h/o percocet Rx. single episode of buying perc off the street, per his report, which ended up being cocaine and fentanyl. Trauma History: none reported Diagnostics Vital Signs (24Hr): Vital Signs - 24 hr 09/21/21 06:16 09/21/21 08:28 09/21/21 08:34 Temperature 98.4 F 98.6 F Pulse Rate 107 H 96 96 Respiratory Rate 16 Blood Pressure 163/88 H 189/91 H 189/91 H Pulse Oximetry 98 99 BMI result Body Mass Index 23.4 Labs Results: 09/20/21 15:32 09/20/21 14:11 Labs: Laboratory Results - last 48 hr 09/20/21 09/20/21 09/20/21 12:33 13:28 14:11 WBC RBC Hgb Hct MCV MCH MCHC RDW Plt Count MPV Immature Gran % (Auto) Neut % (Auto) Lymph % (Auto) [place] % (Auto) Eos % (Auto) Baso % (Auto) Lymph # (Auto) [place] # (Auto) Eos # (Auto) Baso # (Auto) Abs Immat Gran (auto) Absolute Neuts (auto) Absolute Nucleated RBC Nucleated RBC % (auto) Sodium 141 Potassium 3.8 Chloride 107 Carbon Dioxide 24 Anion Gap 14 BUN 11 Creatinine 1.02 Estim Creat Clear Calc 93.3 Estimated GFR > 60 Random Glucose 134 H D Calcium 8.5 D Magnesium 2.3 Total Bilirubin 1.0 Direct Bilirubin 0.5 AST 66 H ALT 62 H Alkaline Phosphatase 50 Total Protein 6.9 Albumin 4.4 Salicylates < 5.0 L Urine Opiates Screen Not Detected Urine Fentanyl Screen POSITIVE H Acetaminophen < 1 Ur Barbiturates Screen Not Detected Ur Phencyclidine Scrn Not Detected Ur Amphetamines Screen Not Detected U Benzodiazepines Scrn Not Detected Urine Cocaine Screen POSITIVE H U Marijuana (THC) Screen POSITIVE H Ethyl Alcohol COVID-19 (NOAH) Negative COVID-19 Clin Com See Note 09/20/21 09/20/21 09/20/21 15:32 15:32 15:32 WBC 5.4 RBC 4.33 L Hgb 14.3 Hct 39.3 L MCV 90.8 MCH 33.0 MCHC 36.4 H RDW 11.6 Plt Count 237 MPV 9.2 L Immature Gran % (Auto) 0.4 Neut % (Auto) 51.8 Lymph % (Auto) 37.0 [place] % (Auto) 9.8 Eos % (Auto) 0.4 Baso % (Auto) 0.6 Lymph # (Auto) 2.0 [place] # (Auto) 0.5 Eos # (Auto) 0.0 Baso # (Auto) 0.0 Abs Immat Gran (auto) 0.02 Absolute Neuts (auto) 2.8 Absolute Nucleated RBC 0.000 Nucleated RBC % (auto) 0.0 Sodium Potassium Chloride Carbon Dioxide Anion Gap BUN Creatinine Estim Creat Clear Calc Estimated GFR Random Glucose Calcium Magnesium Total Bilirubin 0.9 Direct Bilirubin 0.5 AST 64 H ALT 61 H Alkaline Phosphatase 45 Total Protein 6.4 L Albumin 4.1 Salicylates Urine Opiates Screen Urine Fentanyl Screen Acetaminophen Ur Barbiturates Screen Ur Phencyclidine Scrn Ur Amphetamines Screen U Benzodiazepines Scrn Urine Cocaine Screen U Marijuana (THC) Screen Ethyl Alcohol 268 COVID-19 (NOAH) COVID-19 Clin Com Meds/Allergies Meds Home Medications Atorvastatin Calcium (Atorvastatin Calcium 20 Mg Tablet) 20 mg PO BEDTIME SHILPA Lisinopril (Lisinopril 20 Mg Tablet) 20 mg PO DAILY SHILPA; Protocol Last Admin: 09/21/21 08:34 Dose: 20 mg Documented by: Lorazepam (Lorazepam 1 Mg Tablet) 1 mg PO Q4H PRN PRN Reason: anxiety, withdrawal Last Admin: 09/21/21 01:10 Dose: 1 mg Documented by: Multivitamins/Vitamin C (Multivitamin Tablet) 1 tab PO DAILY SHILPA Last Admin: 09/21/21 08:35 Dose: 1 tab Documented by: Olanzapine (Olanzapine 5 Mg Tablet) 5 mg PO BID PRN PRN Reason: aggression, agitation Allergies Allergies Allergy/AdvReac Type Severity Reaction Status Date / Time No Known Allergies Allergy Verified 09/19/21 11:29 Mental Status Exam Mental Status Exam Narrative: appropriately dressed and groomed. cooperative with interview. no PMA/PMR. speech nml rate, amount, loudness, tone, latency. thoughts linear and logical. affect constricted, appropriate, normo-intense, non-labile. mood g ood. denies SI/HI/AVH. Assessment & Plan Assessment & Plan (1) Adjustment disorder with disturbance of conduct: Status: Acute Code(s): F43.24 - Adjustment disorder with disturbance of conduct Assessment and Plan: containment for safety. reconciliation with reported to have happened today. will verify report and discharge tomorrow per pt preference should collateral support. Reason for continued inpatient stay Substantial Risk for: harm to self and inability to function
[2021-09-21] MEDS: Atorvastatin Calcium 20 MG TABLET PO (21:16)
[2021-09-21 21:21] VITALS: BP 141/98; PULSE 112; TEMP 36.8; O2SAT 98
[2021-09-22 09:50] VITALS: BP 180/85; PULSE 108; RESP 17; TEMP 36.8; O2SAT 98
[2021-09-22 09:51] VITALS: BP 180/85; PULSE 108
[2021-09-22] MEDS: lisinopriL 20 MG TABLET PO (09:51)
[2021-09-22] MEDS: Multivitamin TABLET 1 TAB PO (09:51)
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
--- NOTE | 2021-09-22 16:04 | PC.NURSE ---
Patient is pleasant and cooperative upon approach. Patient is in a cheerful mood with congruent affect. Speech is coherent and appropriate. Patient is in agreement with discharge and discharge teaching. Patient reports that he is ready for discharge and to go home. Patient denies SI/HI/AH/VH. Patient denies anxiety or depression. Patient reports I am ready to start this new chapter in my life. I have to turn the page, I have to for my kids at least . Patient reports feeling safe. Patient denies any complaints at this time.
== END 2021-09-22 16:09 | disposition home or self-care (01) | DRG 755 ==
LOC: HO.ED 12:11 → HO.PADLT16 23:51
PROVIDERS: Admitting Provider Psychiatry & Neurology Psychiatry; Emergency Provider Emergency Medicine; PCP Internal Medicine; Visit Provider Psychiatry & Neurology Psychiatry
DX: F43.24 Adjustment disorder with disturbance of conduct (principal); R45.851 Suicidal ideations; Z20.822 Contact with and (suspected) exposure to COVID-19; Z23 Encounter for immunization; Z79.899 Other long term (current) drug therapy
CPT/HCPCS: 36415; 80048; 80076; 80143; 80179; 80307; 82077; 83735; 85025; 87635; 90686; 93005; 99285

== ENCOUNTER 2021-10-02 02:21 | Emergency (ER) | payer OTHER, SELFPAY | END 2021-10-02 05:28 | disposition left against medical advice (07) | PROVIDERS: Emergency Provider Emergency Medicine; PCP Internal Medicine | DX: R45.851 Suicidal ideations (principal) ==

== ENCOUNTER 2023-03-20 13:23 | Emergency (ER) | payer OTHER, SELFPAY ==
[2023-03-20 13:42] VITALS: BP 142/109; PULSE 140; RESP 20; O2SAT 94
[2023-03-20 13:43] VITALS: BP 144/111; PULSE 138
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
[2023-03-20 13:49] VITALS: BP 129/106; BP 168/105; PULSE 137; PULSE 144; RESP 18; TEMP 36.9; O2SAT 94; O2SAT 98; BMI 27.3
[2023-03-20 14:04] LABS: MANUAL DIFF FLAG NO
[2023-03-20 14:05] LABS: Basophils Absolute Auto 0.1 X10*3/uL (0.0-0.2); Basophils Percent Auto 0.6 % (0-2); Eosinophils Absolute Auto 0.1 X10*3/uL (0.0-0.4); Eosinophils Percent Auto 1.3 % (0-4); Hematocrit 47.4 % (42.0-52.0); Hemoglobin 17.1 g/dl (14.0-18.0); Imm Gran Abs Auto 0.05 X10*3/uL (0.00-0.03); Imm Gran Pct Auto 0.5 % (0.0-0.4); Lymphocytes Absolute Auto 3.2 X10*3/uL (1.2-4.9); Lymphocytes Percent Auto 29.5 % (20-40); Mean Corpuscular HGB Conc 36.1 g/dl (31.0-36.0); Mean Corpuscular Hemoglobin 33.2 pg (27.0-33.0); Mean Platelet Volume 9.2 fL (9.4-12.4); Monocytes Absolute Auto 0.7 X10*3/uL (0.1-1.2); Monocytes Percent Auto 6.5 % (2-11); Neutrophils Absolute Auto 6.6 x10*3/uL (2.0-8.3); Neutrophils Percent Auto 61.6 % (45-73); Platelet Count 314 X10*3/uL (160-400); Red Blood Count 5.15 X10*6/uL (4.60-5.80); Red Cell Distribution Width 11.8 % (11.0-16.0); White Blood Count 10.8 X10*3/uL (4.8-10.8)
[2023-03-20 14:19] LABS: Ethanol 259 mg/dL
[2023-03-20 14:21] LABS: Alanine Aminotransferase 38 U/L (0-40); Albumin Level 4.8 g/dL (3.5-5.0); Alkaline Phosphatase 60 U/L (39-117); Anion Gap 18 (12-20); Aspartate Amino Transferase 30 U/L (5-37); Bilirubin Direct 0.2 mg/dL (0.0-0.5); Bilirubin Total 0.6 mg/dL (0.0-1.0); Blood Urea Nitrogen 10 mg/dL (9-16); Calcium 9.8 mg/dL (8.4-10.2); Carbon Dioxide 27 mmol/L (22-29); Chloride 101 mmol/L (96-108); Creatinine Clr Calc Pharmacy 79.8; Estimated Glomerular Filt Rate > 60; Glucose Random 193 mg/dL (60-115); Magnesium 2.4 mg/dL (1.6-2.6); Sodium 142 mmol/L (135-145)
[2023-03-20 14:22] LABS: Amphetamine Screen Urine Not Detected (Not Detect); Barbiturates, Urine Not Detected (Not Detect); Benzodiazepines Screen Urine Not Detected (Not Detect); COVID-19 Test Negative (Negative); Cannabinoid Screen Urine POSITIVE (Not Detect); Cocaine Screen Urine POSITIVE (Not Detect); Fentanyl, urine Not Detected (Not Detect); IDNOW Serial# BCCEAD1C; Opiate Screen Urine Not Detected (Not Detect); Phencyclidine Screen Urine Not Detected (Not Detect)
[2023-03-20 16:33] VITALS: BP 148/97; PULSE 110; RESP 20; TEMP 37.1; O2SAT 95
[2023-03-20] MEDS: LORazepam 1 MG TABLET 2 MG PO (19:58)
[2023-03-20] MEDS: Thiamine HCL 100 MG TABLET PO (20:09)
[2023-03-20] MEDS: Famotidine 20 MG TABLET 40 MG PO (20:09)
[2023-03-20 23:11] VITALS: BP 161/99; PULSE 110; RESP 18; TEMP 36.9; O2SAT 98
--- NOTE | 2023-03-21 12:21 | MHC.CARE ---
Completed referral form and emailed referral packet to [facility]. Will follow up tomorrow to make sure it was received.
== END 2023-03-20 23:41 | disposition home or self-care (01) ==
PROVIDERS: Emergency Provider Emergency Medicine; PCP Internal Medicine
DX: R45.851 Suicidal ideations (principal); I10 Essential (primary) hypertension; F19.10 Other psychoactive substance abuse, uncomplicated; Z79.899 Other long term (current) drug therapy; Z20.822 Contact with and (suspected) exposure to COVID-19
CPT/HCPCS: 80048; 80076; 80307; 83735; 85025; 87635; 99284; S9485

== ENCOUNTER 2023-04-15 18:53 | Emergency (ER) | payer OTHER, SELFPAY ==
[2023-04-15 19:25] VITALS: BP 134/92; BP 156/97; PULSE 112; PULSE 98; RESP 16; TEMP 36.7; O2SAT 96; O2SAT 98; BMI 23.7
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
[2023-04-15 20:25] LABS: Appearance Urine Clear; Color Urine Yellow; Glucose Urine UA Negative (Negative); Leukocyte Esterase Urine Negative (Negative); Mean Corpuscular HGB Conc 34.9 g/dl (31.0-36.0); Mean Corpuscular Hemoglobin 33.1 pg (27.0-33.0); Mean Corpuscular Volume 94.9 fL (80.0-98.0); Mean Platelet Volume 10.2 fL (9.4-12.4); Nitrite Urine Negative (Negative); Platelet Count 222 X10*3/uL (160-400); Red Blood Count 4.53 X10*6/uL (4.60-5.80); Red Cell Distribution Width 12.1 % (11.0-16.0); UMIC TRIGGER UACC YES; Urine Blood Negative (Negative); Urine Ketones Trace mg/dL (Negative); Urine Protein 30 (1+) mg/dL (Neg-Trace); White Blood Count 8.2 X10*3/uL (4.8-10.8)
[2023-04-15 20:30] LABS: Bacteria Urine None Seen (None Seen); RBC Urine 0-2 /HPF (0-2); Squamous Epithelial Cell Urine 0-2 /HPF (0-2); WBC Urine 0-5 /HPF (0-5)
[2023-04-15 20:36] LABS: Amphetamine Screen Urine Not Detected (Not Detect); Barbiturates, Urine Not Detected (Not Detect); Benzodiazepines Screen Urine Not Detected (Not Detect); Cannabinoid Screen Urine POSITIVE (Not Detect); Cocaine Screen Urine Not Detected (Not Detect); Fentanyl, urine Not Detected (Not Detect); Opiate Screen Urine Not Detected (Not Detect); Phencyclidine Screen Urine Not Detected (Not Detect)
[2023-04-15 20:50] LABS: Anion Gap 18 (12-20); Blood Urea Nitrogen 8 mg/dL (9-16); Calcium 9.4 mg/dL (8.4-10.2); Carbon Dioxide 25 mmol/L (22-29); Chloride 108 mmol/L (96-108); Creatinine Clr Calc Pharmacy 86.9; Estimated Glomerular Filt Rate > 60; Ethanol 239 mg/dL; Glucose Random 118 mg/dL (60-115); Potassium 4.7 mmol/L (3.3-5.1); Sodium 146 mmol/L (135-145)
[2023-04-15] MEDS: LORazepam 1 MG TABLET 2 MG PO (23:24)
[2023-04-16 05:15] VITALS: BP 142/92; PULSE 110; RESP 17; TEMP 37.2; O2SAT 97
[2023-04-16] MEDS: chlordiazePOXIDE HCl 25 MG CAPSULE PO (05:27)
--- NOTE | 2023-04-16 05:40 | PC.NURSE ---
Patient slept most part of the night, Ativan 2 mg PO administered at 2324 for comfort, CIWA @ 0510 was 8, librium 25 mg administered at 0527, pending effect, coherent, behavior non concerning, med rec completed/pending provider's approval, Care consult ordered for homicidal ideation, pending evaluation in the morning, labs completed/resulted, will continue to monitor.
--- NOTE | 2023-04-16 08:26 | PHA.MEDREC ---
Pharmacy Consult ? Medication Reconciliation Pharmacy has completed the medication reconciliation. Reviewed med rec done by nursing
[2023-04-16] MEDS: lisinopriL 20 MG TABLET PO (08:40)
--- NOTE | 2023-04-16 09:26 | PC.NURSE ---
Pt currently calm & cooperative. A&Ox4. Medicated per MAR. Presently speaking with on phone - offers no complaints at this time. WCTA
--- NOTE | 2023-04-16 10:43 | PC.NURSE ---
Provider met with PT, cleared for DC. Awaiting discharge paperwork. Family member contacted for pickup. Pt calm & cooperative.
--- NOTE | 2023-04-17 17:14 | MHC.CARE ---
CARE called pt for follow up, he reports he heard back from [facility] and there are insurance barriers for treatment. Pt was given contact information for [facility] urgent outpatient walk in clinic to call, patient reports he has been doing well.
== END 2023-04-16 10:50 | disposition home or self-care (01) ==
PROVIDERS: Internal Medicine; Emergency Provider Emergency Medicine Emergency Medical Services
DX: F41.9 Anxiety disorder, unspecified (principal); R45.851 Suicidal ideations; F41.1 Generalized anxiety disorder; F43.0 Acute stress reaction; F10.10 Alcohol abuse, uncomplicated; F12.90 Cannabis use, unspecified, uncomplicated; Y90.7 Blood alcohol level of 200-239 mg/100 ml; Z79.899 Other long term (current) drug therapy
CPT/HCPCS: 36415; 80048; 80307; 81001; 85027; 99284; S9485

== ENCOUNTER 2024-03-05 12:52 | Outpatient (REF) | payer OTHER, SELFPAY ==
--- NOTE | ~2024-03-05 | CT_ITS ---
EXAMINATION: CT ABDOMEN AND PELVIS WITH CONTRAST CLINICAL INFORMATION: 54-year-old male with pelvic and peroneal pain COMPARISON: None available. TECHNIQUE: Multidetector volumetric images were obtained from the superior aspect of the liver through the pubic symphysis following administration 85 mL of Omnipaque 350 intravenous contrast. Sagittal and coronal reformatted images were obtained on the technologist's workstation. Oral contrast: Yes This CT examination was performed using dose optimization techniques as appropriate, variously including the following: *Automated exposure control *Adjustment of mA and/or kV according to patient size (this includes techniques or standardized protocols for targeted exams where dose is matched to indication/reason for exam; i.e. extremities or head) *Use of iterative reconstruction technique DLP: 376 mGy-cm FINDINGS: LUNG BASES: The visualized lung bases are unremarkable. LIVER, GALLBLADDER, AND BILIARY TREE: The liver is normal in size, shape, and attenuation. No focal hepatic lesion or biliary ductal dilatation is present. The gallbladder is unremarkable with no evidence of radiopaque gallstones, gallbladder wall thickening, or obvious pericholecystic inflammatory changes. PANCREAS: Unremarkable. SPLEEN: Unremarkable. ADRENAL GLANDS: Unremarkable. KIDNEYS AND URETERS: The kidneys are normal in size, shape, and attenuation. No hydronephrosis, hydroureter, or calculi seen. No perinephric stranding. BLADDER: Unremarkable. GASTROINTESTINAL TRACT: There is abscess formation identified adjacent to the sigmoid colon with microperforation and haziness surrounding sigmoid colon, the area of fatty infiltration measured approximately 6.4 x 5.10 cm there is small amount of fluid adjacent to the wall of sigmoid colon ABDOMINAL WALL: There is a small fat-containing right inguinal hernia LYMPH NODES: Normal. VASCULAR: Unremarkable. PELVIC VISCERA: Unremarkable. OSSEOUS STRUCTURES: There are mild degenerative changes at the level of L4-L5 and L5-S1 CT/CT abdomen pelvis w IV con IMPRESSION: 1. Abscess formation adjacent to the sigmoid colon with microperforation and haziness surrounding the sigmoid colon. 2. Small fat-containing right inguinal hernia. Fleischner guidelines were followed.
[2024-03-05] MEDS: Barium Sulfate Oral (Mocha) 450 ML ORAL.SUSP 900 ML PO (15:35)
[2024-03-05] MEDS: iohexoL 350 MG/ML 100 ML INFUS..BTL IV (15:36)
[2024-03-09 07:45] LABS: Creatinine POC 0.9 mg/dL (0.5-1.4); GFR POC > 60
== END 2024-03-05 12:53 | disposition home or self-care (01) ==
LOC: HO.CT 12:52
PROVIDERS: PCP Family Medicine; Visit Provider Nurse Practitioner Adult Health
DX: R10.2 Pelvic and perineal pain (principal)
CPT/HCPCS: 74177; 82565; Q9967

== ENCOUNTER 2025-02-15 08:40 | Emergency (ER) | payer OTHER, SELFPAY ==
[2025-02-15 08:42] VITALS: BP 147/72; PULSE 72; RESP 16; TEMP 36.6; O2SAT 100; BMI 24.8
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
--- NOTE | 2025-02-15 09:24 | ED_ITS ---
HPI - General Adult General Chief complaint: Extremity Injury, Lower Stated complaint: Torn L Achilles Tendon Time Seen by Provider: 02/15/25 09:08 Source: patient, RN notes reviewed and old records reviewed Mode of arrival: ambulatory Limitations: no limitations History of Present Illness ED Provider: Linda CHOUDHARY narrative: Patient is a 55-year-old male presenting to the emergency department with complaint of left posterior ankle pain and swelling. 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 Denies any numbness or tingling to foot. complaint: Left ankle injury Onset (ago): day(s) Related Data Home Medications ?Medication ?Instructions ?Recorded ?Confirmed atorvastatin 20 mg tablet 1 tab PO BEDTIME 09/20/21 04/15/23 lisinopril 20 mg tablet 1 tab PO DAILY 09/20/21 04/15/23 Allergies Allergy/AdvReac Type Severity Reaction Status Date / Time No Known Allergies Allergy Verified 02/15/25 08:44 Review of Systems Review of Systems: As per HPI Yes all other systems are reviewed and are negative Constitutional: Constitutional: Reports as per HPI PMFSH Past Medical History Medical History Active substance abuse Cervical vertebral fusion HTN (hypertension) Social History Social History Household Members: Other Household Members Other:: & 2 children currently staying at [facility]. residence Housing: House Do you presently have visiting nurse or other home services: No Alcohol intake: current Alcohol intake frequency: holidays/special occasions only Patient Tobacco Use Status: Never used Tobacco Smoked in Last 30 Days: No Use of substances other than those prescribed or required for medical reasons: No Substance Use Type: Marijuana Advance Directives: No Advance Directives Information Provided: Yes Do you have a plan to hurt others: No Plan service: No Sexual orientation: Straight/Heterosexual Physical Exam ED Vital Signs: Vital Signs - 24 hr 02/15/25 08:42 Temperature 97.9 F Pulse Rate 72 Respiratory Rate 16 Blood Pressure 147/72 H Pulse Oximetry 100 Oxygen Delivery Method Room Air BMI result Body Mass Index 24.8 Vital signs have been reviewed and appear to be correct. Blood pressure normal. Heart rate normal. Respiratory rate normal. Temperature normal. Oxygen saturation normal. Const General: cooperative, healthy appearing and no acute distress Orientation/consciousness: oriented to person, oriented to place, oriented to time and patient oriented x3 Limitations: no limitations HENMT Head: Yes normocephalic and Yes atraumatic Ears: external ears normal General nose exam: Normal external nose present Face and sinus: Yes face symmetric Mouth: oropharynx normal and moist mucous membranes Throat: Yes uvula midline Eyes Pupils: Equal, round and reactive pupils present Neck Neck: Yes normal visual inspection and Yes supple Resp Effort & Inspection: normal respiratory effort and able to speak in complete sentences Auscultation: clear to auscultation bilaterally Cardio Rate: regular rate Rhythm: regular rhythm Heart sounds: S1 normal heart sound present and S2 normal heart sound present GI Palpation (GI): Soft to palpation and nontender Auscultation: normoactive bowel sounds General: Yes no CVA tenderness Back/Spine/Pelvis Back: no CVA tenderness Skin General skin exam: elasticity normal and turgor normal Neuro General: oriented to person, oriented to place, oriented to time, patient oriented x3, moves all extremities, no focal motor deficits and CN's II-XI intact bilaterally Cranial nerves: Yes Equal, round and reactive pupils present Cognition (Neuro): normal cognition Extrem General: Yes full ROM, Yes no pedal edema and Yes no calf tenderness Left lower extremity: ankle Details: tenderness Location: of the achilles tendon, swelling Details: posteriorly and achilles tendon exam abnormal Details: tenderness to palpation and Rebolledo Test abnormal (left) and foot Details: normal capillary refill, normal to inspection and vascular exam Details: dorsalis pedis pulse present, posterior tibial pulse present and normal capillary refill Psych Mental Status: mental status grossly normal Affect: normal affect Thought process: Normal thought process present Medical Decision Making Medical Decision Making MDM Narrative: Patient is a 55-year-old male presenting to the emergency department with complaint of left posterior ankle pain and swelling. On exam patient is awake, A+Ox3, VS WNL, afebrile, normal neurological exam without focal deficits, physical exam findings as above. Given reported symptoms and physical exam findings, initial differential includes but is not limited to Achilles tendon rupture, partial tear, tendinitis. Physical exam most consistent with Achilles tendon rupture. Patient placed in walking boot and given crutches, advised no weight-bearing to left leg until seen by orthopedics. Will refer to ortho for further evaluation and management. Advised patient to keep ankle elevated while at rest, apply ice intermittently throughout the day, Tylenol and ibuprofen as needed. Return precautions discussed. Patient verbalized understanding of and agreement with plan. Differential Diagnosis Differential Diagnoses: The differential diagnosis associated with the presentation includes As per [facility] Admission/Observation Consideration of admission/observation: Escalation of care including admission/observation considered Patient would have been admitted to the hospital had their work up had any findings where hospital admission was appropriate and their clinical presentation warranted hospital admission. External Record Review External record reviewed: Inpatient record, Office record and Outpatient record Discharge Plan Discharge Clinical Impression: Achilles rupture, left Patient Disposition: Home, Self-Care Instructions: Crutch Instructions (ED), Achilles Tendon Rupture (ED), Walking Boot (ED) Additional Instructions: You have been evaluated in the emergency department today for ankle pain and swelling. Your evaluation is consistent with an achilles tendon rupture. We have placed you in a walking boot for support. We have provided crutches for you to use until you follow up with orthopedics. Do not bear weight on your left leg until seen by ortho. Please rest, ice, and elevate your ankle. We recommend you take 600mg ibuprofen every 6 hours or 650mg Tylenol every 6 hours as needed for pain. If needed you can alternate these medications as they take 1 medication every 3 hours. For instance at noon take ibuprofen, then at 3:00 p.m. take Tylenol, then at 6:00 p.m. take ibuprofen. Call the orthopedics office to schedule an appointment. Please schedule an appointment for follow-up with your primary care provider this week as well. Return to the emergency department if you experience worsening pain, numbness, tingling, change of color in your ankle/foot/toes, or any other concerning symptoms. Prescriptions: No Action atorvastatin 20 mg tablet 1 tab PO BEDTIME lisinopril 20 mg tablet 1 tab PO DAILY Referrals: [facility] [Provider Group] - 3 days (ruptured left achilles, placed in boot, given crutches) Stand Alone Forms: Work/School Release Print Language: [place] Islander
[2025-02-15 09:46] VITALS: BP 147/72; PULSE 72; RESP 16; TEMP 36.6; O2SAT 100
== END 2025-02-15 09:47 | disposition home or self-care (01) ==
PROVIDERS: Emergency Provider Emergency Medicine Emergency Medical Services; PCP Family Medicine
DX: S86.002A Unspecified injury of left Achilles tendon, initial encounter (principal); X50.9XXA Other and unspecified overexertion or strenuous movements or postures, initial encounter; M25.572 Pain in left ankle and joints of left foot; Y93.79 Activity, other specified sports and athletics; Y92.328 Other athletic field as the place of occurrence of the external cause; Y99.9 Unspecified external cause status
CPT/HCPCS: 99283; 99284

== ENCOUNTER 2025-02-18 10:44 | Outpatient (AMB) | payer OTHER, SELFPAY ==
--- NOTE | 2025-02-18 10:47 | MHC.OFFVIS ---
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 He expresses that it felt like being hit with a sledgehammer. Patient mentions he is having a lot of soreness. He states that the boot is giving him relief and using the crutches for balance. 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 He presents to the office today for evaluation of a left Achilles tendon injury that he sustained on 02/12/25 while playing lacrosse. He states that it felt like he was hit in the back of the leg. He presented to the emergency department where he was given a tall walking boot and crutches. He was instructed to follow up with orthopedics outpatient for further evaluation and treatment of a left Achilles tendon rupture. [facility] Medical History Active substance abuse Cervical vertebral fusion HTN (hypertension) Social History (Updated 02/18/25 @ 11:19 by Danielito Weinberg) Household Members: Other Household Members Other:: & 2 children currently staying at [facility]. 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 There is resolving ecchymosis at the base of the heel. Positive Rebolledo's test. NVI. Assessment & Plan Assessment & Plan (1) Achilles rupture, left: Code(s): S86.012A - Strain of left Achilles tendon, initial encounter Category: Medical Plan Mr. 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 He presents to the office today for evaluation of a left Achilles tendon injury that he sustained on 02/12/25 while playing lacrosse. He states that it felt like he was hit in the back of the leg. He presented to the emergency department where he was given a tall walking boot and crutches. He was instructed to follow up with orthopedics outpatient for further evaluation and treatment of a left Achilles tendon rupture. While the office today, we discussed surgical versus conservative treatment options. Patient would like to proceed with surgical intervention. However, the patient does have a 2nd opinion appointment scheduled for tomorrow. I discussed with the patient the urgency of repair in this type of injury and if prolonged the Achilles tendon may scar down and be a repairable. Patient demonstrates understanding. He was placed back into the tall walking boot. He will contact our office tomorrow on 02/19/2025 with his decision if he would like to move forward with our office. I discussed the case with Dr. Reyes who would like to see the patient prior to proceeding forward with surgery. This would be scheduled the next few days during routine business hours. Coding Level of Care Code New Pt Level 4 (64486) Diagnoses Achilles rupture, left S86.012A
[2025-02-18 11:20] VITALS: BMI 24.7
--- OUTSIDE RECORDS SUMMARY | 2025-02-18 11:50 | XMS_ITS | Encounter Summary ---
Author Organization [facility] Address [address] [place] [address] Care Team Providers Care Small Arms Artillery Repairer Name Role Phone Masoud Mehta MD Primary Care Provider [phone] Marybel Perera MD Unavailable [phone] Encounter Details Date Type Department Care Team (Late st Contact Info) Description 07/03/2022 Scanned Document [facility] NEUROSURGERY SCAN Neurosurgery, Scan Social History Tobacco Use Types Packs/Day Years Used Date Smoking Tobacco: Never Smokeless Tobacco: Never Alcohol Use Standard Drinks/Week Comments Yes 6 (1 standard drink = 0.6 oz pur e alcohol) Social Sex and Gender Information Value Date Recorded Sex Assigned at Not on file Legal Sex Male 10:59 AM EDT Gender Identity Male 03/07/2021 6:53 AM EDT Sexual Orientation Heterosexual (straight) 03/07 6:53 AM EDT documented as of this encounter Plan of Treatment Not on file documented as of this encounter Visit Diagnoses Not on filedocumented in this encounter Care Teams Small Arms Artillery Repairer Relationship Specialty Start Date End Date Masoud Mehta MD [address] [place] [address] PCP - General 09/22/19 Marybel Perera MD [address] [place] [address] Surgery, Neurosurgery 06/06/21 documented as of this encounter
--- OUTSIDE RECORDS SUMMARY | 2025-02-18 11:50 | XMS_ITS | Clinical Summary ---
Author Organization [facility] Address [address] [place] [address] Care Team Providers Care Glass Crusher Name Role Phone Masoud Mehta MD Primary Care Provider [phone] Marybel Perera MD Unavailable [phone] Allergies No known active allergies Medications lisinopril (PRINIVIL,ZeSTR IL) 20 MG tablet Take 1 tablet (20 mg total) by mouth every morning. 9 Active Cholecalciferol (Vitamin D3 Super Strength) 50 MCG (2000 UT) Tab Take 2,000 Units by mouth every morning. Active atorvastatin (LIPITOR) 20 MG tablet Take 1 tablet (20 mg total) by mouth every morning. Active OMEprazole (PriLOSEC) 10 MG capsule Take 1 capsule (10 mg total) by mouth daily as needed. Active loratadine (CLARITIN) 10 MG tablet Take 1 tablet (10 mg total) by mouth daily. Active methylPREDNISol one (MEDROL DOSEPAK) 4 MG tabletIndicatio ns:Status post spinal surgery,Right arm pain follow package directions 21 tablet 1 Active sertraline (ZOLOFT) 50 MG tablet Take 1 tablet (50 mg total) by mouth daily. 2 Active Multiple Vitamins-Minera ls (Oncovite) Tab Take 1 tablet by mouth daily. Active Active Problems Problem Noted Date Diagnosed Date Spinal stenosis in cervical region 07/19/2021 Ulnar neuropathy of both upper extremities 01/02 Carpal tunnel syndrome of right wrist 01/02/2021 Postoperative visit 10/08/2019 Other spondylosis with radiculopathy, cervical r egion 09/24/2019 Cervical radiculopathy 08/04/2019 Foraminal stenosis of cervical region 08/04/2019 Right hand weakness 08/04/2019 Anxiety 04/17/2018 Essential hypertension 04/17/2018 Gastroesophageal reflux disease without esophagi tis 04/17/2018 Neck pain 04/17/2018 Immunizations Immunization Administration Dates Next Due Influenza, Unspecified 08/06/2019 Family History Medical History Relation Name Comments Atrial fibrillation Father Hypertension Father Stroke Father No Known Problems Mother Relation Name Status Comments Brother 1 Alive Brother 2 Alive Brother 3 Alive Daughter Alive Father Alive Mother Alive Other Alive Sister Alive Son Alive Social History Tobacco Use Types Packs/Day Years Used Date Smoking Tobacco: Never Smokeless Tobacco: Never Tobacco Cessation:Counseling Given: Not Answered Alcohol Use Standard Drinks/Week Comments Yes 6 (1 standard drink = 0.6 oz pur e alcohol) Social Sex and Gender Information Value Date Recorded Sex Assigned at Not on file Legal Sex Male 10:59 AM EDT Gender Identity Male 03/07/2021 6:53 AM EDT Sexual Orientation Heterosexual (straight) 03/07 6:53 AM EDT Last Filed Vital Signs Vital Sign Reading Time Taken Comments Blood Pressure 142/90 08/28/2022 2:38 PM EST Pulse 80 08/28/2022 2:38 PM EST Temperature 36.7 ??C (98 ??F) 08/28/2022 2:38 PM EST Respiratory Rate 20 07/20/2021 9:00 AM EDT Oxygen Saturation 99% 11/17/2021 9:06 AM EST Inhaled Oxygen Concentration - - Weight 81.6 kg (180 lb) 08/28/2022 2:38 PM EST Height 177.8 cm (5' 10 ) 08/28/2022 2:38 PM EST Body Mass Index 25.83 08/28/2022 2:38 PM EST Plan of Treatment Health Maintenance Due Date Last Done Comments Hepatitis C Virus Screening 1970 HIV Screening 01/30/1985 DTaP/Tdap/Td Vaccines (1 - Tdap) 01/30/1991 Hepatitis B Vaccines (1 of 3 - 19+ 3-dose series) 01/30/1991 Colonoscopy 01/30/2017 Pneumococcal Vaccines 50+ (1 of 1 - PCV) 01/30/2022 Zoster (Shingles) Vaccine (1 of 2) 01/30/2022 COVID-19 Vaccine (3 - 2023-2 5 season) 2024 11/25/2020, 10/28/2020 Influenza Vaccine 05/07/2025 06/19/2022, , 08/26/2019, Additional history exists Medical Devices Implanted Type Area Cap Maker Device Identifier Shelf Expiration Date Model / Serial / Lot [id number] Spacer Spinal 14x5mm Vrtstck Crstn Psr 14mm Peek-Optm - [id number] Implanted:Qty: 1 on 09/24/2019 at [facility] Cage [employer] 01/16/2025 [id number] / / [id number] Graft Bone 1 Fctr 1cc Algrf Putty Syringe - [id number] Implanted:Qty: 1 on 09/24/2019 at [facility] Tissue [employer] 05/06/2022 [id number] / / [id number] Explanted Type Area Cap Maker Device Identifier Shelf Expiration Date Model / Serial / Lot [id number] Plate Spine Cervical Anterior 17mm 1 Lvl Ti Bone Zevo - [id number] Implanted:Qty: 1 on 09/24/2019 at [facility] Explanted:Qty: 1 on 07/19/2021 by Marybel Perera MD at [facility] Plate [employer] [id number] / / [id number] Screw Bone Spine Ilium Pdcl Cd Hzn Lgc 14mm Ti Distraction - [id number] Explanted:Qty: 2 on 09/24/2019 at [facility] Spine [employer] 03/06/2022 [id number] / / [id number] Screw Bone Spine Cervical Anterior Zevo 15mm Ti 3.5mm Va - [id number] Implanted:Qty: 4 on 09/24/2019 at [facility] Explanted:Qty: 4 on 07/19/2021 by Marybel Perera MD at [facility] Spine [employer] [id number] / / Insurance [facility] Advance Directives * Full Code (Latest Code Status on File) Date Activated Date Inactivated Comments 07/19/2021 1:41 PM * Full Code Date Activated Date Inactivated Comments 07/19/2021 7:50 AM 07/19/2021 1:41 PM * Full Code Date Activated Date Inactivated Comments 09/24/2019 9:08 PM 07/19/2021 7:21 AM Care Teams Glass Crusher Relationship Specialty Start Date End Date Masoud Mehta MD [address] [place] [address] PCP - General 09/22/19 Marybel Perera MD [address] [place] [address] Surgery, Neurosurgery 06/06/21
--- OUTSIDE RECORDS SUMMARY | 2025-02-18 11:50 | XMS_ITS | Encounter Summary ---
Author Organization [facility] Address [address] [place] [address] Care Team Providers Care Supervisor Concrete Stone Fabricating Name Role Phone Masoud Mehta MD Primary Care Provider [phone] Marybel Perera MD Unavailable [phone] Encounter Details Date Type Department Care Team (Late st Contact Info) Description 01/25/2021 Scanned Document [facility] Neurosurgery [place] [address] [facility] [address] [place] [phone] Marybel Perera MD 85 [facility] [place] [address] [place] [address] Social History Tobacco Use Types Packs/Day Years Used Date Smoking Tobacco: Never Smokeless Tobacco: Never Alcohol Use Standard Drinks/Week Comments Yes 6 (1 standard drink = 0.6 oz pur e alcohol) Sex and Gender Information Value Date Recorded Sex Assigned at Not on file Legal Sex Male 10:59 AM EDT Gender Identity Male 03/07/2021 6:53 AM EDT Sexual Orientation Heterosexual (straight) 03/07 6:53 AM EDT documented as of this encounter Plan of Treatment Not on file documented as of this encounter Visit Diagnoses Not on filedocumented in this encounter Care Teams Supervisor Concrete Stone Fabricating Relationship Specialty Start Date End Date Masoud Mehta MD [address] [place] [address] PCP - General 09/22/19 Marybel Perera MD [address] [place] [address] Surgery, Neurosurgery 06/06/21 documented as of this encounter
--- OUTSIDE RECORDS SUMMARY | 2025-02-18 11:50 | XMS_ITS | Encounter Summary ---
Author Organization [facility] Address [address] [place] [address] Care Team Providers Care Bending Shed Worker Name Role Phone Masoud Mehta MD Primary Care Provider Marybel Perera MD Unavailable [phone] Encounter Details Date Type Department Care Team (Late st Contact Info) Description 09/26/2022 Scanned Document [facility] Neurosurgery [place] 85 [facility] [address] [place] [phone] Neurosurgery, Scan Social History Tobacco Use Types [...] on filedocumented in this encounter Care Teams Bending Shed Worker Relationship Specialty Start Date End Date Masoud Mehta MD [address] [place] [address] PCP - General 09/22/19 Marybel Perera MD 85 [facility] [address] [place] [address] Surgery, Neurosurgery 06/06/21 documented as of this encounter
--- OUTSIDE RECORDS SUMMARY | 2025-02-18 11:50 | XMS_ITS | Encounter Summary ---
Author Organization [facility] Address [address] [place] [address] Care Team Providers Care Physical Aerodynamicist Name Role Phone Masoud Mehta MD Primary Care Provider [phone] Marybel Perera MD Unavailable [phone] Encounter Details Date Type Department Care Team (Late st Contact Info) Description 06/27/2022 Scanned Document [facility] Neurosurgery [place] 85 [facility] [address] [place] [phone] Neurosurgery, Scan Social History Tobacco Use [...] on filedocumented in this encounter Care Teams Physical Aerodynamicist Relationship Specialty Start Date End Date Masoud Mehta MD [address] [place] [address] PCP - General 09/22/19 Marybel Perera MD 85 [facility] 1003 [place] [address] Surgery, Neurosurgery 06/06/21 documented as of this encounter
--- OUTSIDE RECORDS SUMMARY | 2025-02-18 11:50 | XMS_ITS | Encounter Summary ---
Author Organization [facility] Address [address] [place] [address] Care Team Providers Care First Assistant Name Role Phone Masoud Mheta MD Primary Care Provider [phone] Marybel Perera MD Unavailable [phone] Encounter Details Date Type Department Care Team (Late st Contact Info) Description 03/09/2021 Scanned Document [facility] Neurosurgery [place] 85 [facility] [address] [place] [phone] Marybel Perera MD 85 [facility] [place] [address] [place] [address] Social History Tobacco Use Types Packs/Day Years [...] Orientation Heterosexual (straight) 03/07 6:53 AM EDT COVID-19 Exposure Response Date Recorded In the last month, have you been in contact with someone who was confirmed or suspected to have Coronavirus / COVID-19? No / Unsure 03/07/2021 2:11 PM EDT documented as of this encounter Plan of Treatment Not on file documented as of this encounter Visit Diagnoses Not on filedocumented in this encounter Care Teams First Assistant Relationship Specialty Start Date End Date Masoud Mehta MD [address] [place] [address] PCP - General 09/22/19 Marybel Perera MD [address] [address] Surgery, Neurosurgery 06/06/21 documented as of this encounter
--- OUTSIDE RECORDS SUMMARY | 2025-02-18 11:50 | XMS_ITS | Encounter Summary ---
Author Organization [facility] Address [address] [place] [address] Care Team Providers Care Laminating Machine Feeder Name Role Phone Masoud Mehta MD Primary Care Provider [phone] Marybel Perera MD Unavailable [phone] Encounter Details Date Type Department Care Team (Late st Contact Info) Description 10/30/2022 Scanned Document [facility] Neurosurgery [place] [address] [address] Neurosurgery, Scan Social History Tobacco Use [...] on filedocumented in this encounter Care Teams Laminating Machine Feeder Relationship Specialty Start Date End Date Masoud Mehta MD [address] [place] [address] PCP - General 09/22/19 Marybel Perera MD [address] [place] [address] [place] [address] Surgery, Neurosurgery 06/06/21 documented as of this encounter
--- OUTSIDE RECORDS SUMMARY | 2025-02-18 11:50 | XMS_ITS | Encounter Summary ---
Author Organization [facility] Address [address] [place] [address] Care Team Providers Care Wool Mixer Name Role Phone Masoud Mehta MD Primary Care Provider [phone] Marybel Perera MD Unavailable [phone] Encounter Details Date Type Department Care Team (Late st Contact Info) Description 06/12/2023 Scanned Document [facility] Neurosurgery [place] [address] [address] Neurosurgery, Scan Social History Tobacco [...] on filedocumented in this encounter Care Teams Wool Mixer Relationship Specialty Start Date End Date Masoud Mehta MD [address] [place] [address] PCP - General 09/22/19 Marybel Perera MD 85 [facility] 100[address] [place] [address] Surgery, Neurosurgery 06/06/21 documented as of this encounter
--- OUTSIDE RECORDS SUMMARY | 2025-02-18 11:50 | XMS_ITS | Encounter Summary ---
Author Organization [facility] Address [address] [place] [address] Care Team Providers Care Health Safety Instructor Name Role Phone Masoud Mehta MD Primary Care Provider [phone] Marybel Perera MD Unavailable [phone] Encounter Details Date Type Department Care Team (Late st Contact Info) Description 10/28/2019 Scanned Document [facility] Neurosurgery [address] [address] Marybel Perera MD 85 [facility] [address] [place] [address] Social History Tobacco Use Types Packs/Day Years [...] on filedocumented in this encounter Care Teams Health Safety Instructor Relationship Specialty Start Date End Date Masoud Mehta MD [address] [place] [address] PCP - General 09/22/19 Marybel Perera MD [address] [place] [address] Surgery, Neurosurgery 06/06/21 documented as of this encounter
--- OUTSIDE RECORDS SUMMARY | 2025-02-18 11:50 | XMS_ITS | Encounter Summary ---
Author Organization [facility] Address [address] [place] [address] Care Team Providers Care Tool Chaser Name Role Phone Masoud Mehta MD Primary Care Provider Marybel Perera MD Unavailable [phone] Encounter Details Date Type Department Care Team ([facility] st Contact Info) Description 05/04/2021 Scanned Document [facility] Neurosurgery [place] 85 [facility] [address] [place] [phone] Marybel Perera MD 85 [facility] [place] [address] [place] [address] Social History Tobacco Use Types Packs/Day Years [...] have Coronavirus / COVID-19? No / Unsure 04/24/2021 8:28 AM EDT documented as of this encounter Plan of Treatment Not on file documented as of this encounter Visit Diagnoses Not on filedocumented in this encounter Care Teams Tool Chaser Relationship Specialty Start Date End Date Masoud Mehta MD 84 [place] [address] PCP - General 09/22/19 Marybel Perera MD [address] [address] Surgery, Neurosurgery 06/06/21 documented as of this encounter
--- OUTSIDE RECORDS SUMMARY | 2025-02-18 11:50 | XMS_ITS | Encounter Summary ---
Author Organization [facility] Address [address] [place] [address] Care Team Providers Care Custodial Laborer Name Role Phone Masoud Mehta MD Primary Care Provider [phone] Marybel Perera MD Unavailable [phone] Encounter Details Date Type Department Care Team (Late st Contact Info) Description 02/08/2021 Scanned Document [facility] Neurosurgery [place] 85 [facility] [address] [place] [phone] Marybel Perera MD 85 [facility] [place] [address] [place] [address] Social History Tobacco Use Types Packs/Day Years [...] on filedocumented in this encounter Care Teams Custodial Laborer Relationship Specialty Start Date End Date Masoud Mehta MD [address] [place] [address] PCP - General 09/22/19 Marybel Perera MD [address] [place] [address] Surgery, Neurosurgery 06/06/21 documented as of this encounter
--- OUTSIDE RECORDS SUMMARY | 2025-02-18 11:50 | XMS_ITS | Encounter Summary ---
Author Organization [facility] Address [address] [place] [address] Care Team Providers Care Hawk Missile System Crewmember Name Role Phone Masoud Mehta MD Primary Care Provider [phone] Marybel Perera MD Unavailable [phone] Encounter Details Date Type Department Care Team (Late st Contact Info) Description 02/19/2020 Scanned Document [facility] Neurosurgery [place] 85 [facility] [address] [place] [phone] Marybel Perera MD 85 [facility] [place] [address] [place] [address] Social History Tobacco Use Types Packs/Day Years [...] on filedocumented in this encounter Care Teams Hawk Missile System Crewmember Relationship Specialty Start Date End Date Masoud Mehta MD [address] [place] [address] PCP - General 09/22/19 Marybel Perera MD [address] [place] [address] Surgery, Neurosurgery 06/06/21 documented as of this encounter
--- OUTSIDE RECORDS SUMMARY | 2025-02-18 11:50 | XMS_ITS | Encounter Summary ---
Author Organization [facility] Address [address] [place] [address] Care Team Providers Care Assistant Professor Of Radiology Name Role Phone Masoud Mehta MD Primary Care Provider [phone] Marybel Perera MD Unavailable [phone] Encounter Details Date Type Department Care Team (Late st Contact Info) Description 03/01/2021 Scanned Document [facility] Neurosurgery [place] 85 [facility] [address] [place] [phone] Marybel Perera MD 85 [facility] [place] [address] [place] [address] Social History Tobacco Use Types Packs/Day Years [...] on filedocumented in this encounter Care Teams Assistant Professor Of Radiology Relationship Specialty Start Date End Date Masoud Mehta MD [address] [place] [address] PCP - General 09/22/19 Marybel Perera MD [address] [place] [address] Surgery, Neurosurgery 06/06/21 documented as of this encounter
--- OUTSIDE RECORDS SUMMARY | 2025-02-18 11:50 | XMS_ITS | Encounter Summary ---
Author Organization [facility] Address [address] [place] [address] Care Team Providers Care Broker Assistant Name Role Phone Masoud Mehta MD Primary Care Provider [phone] Marybel Perera MD Unavailable [phone] Encounter Details Date Type Department Care Team (Late st Contact Info) Description 06/25/2022 Scanned Document [facility] Neurosurgery [place] 85 [facility] [address] [place] [phone] Jocelyn Banuelos PA Valid Address Needed Social History Tobacco Use Types Packs/Day Years [...] on filedocumented in this encounter Care Teams Broker Assistant Relationship Specialty Start Date End Date Masoud Mehta MD [address] [place] [address] PCP - General 09/22/19 Marybel Perera MD 85 [facility] 1003 [place] [address] Surgery, Neurosurgery 06/06/21 documented as of this encounter
--- OUTSIDE RECORDS SUMMARY | 2025-02-18 11:50 | XMS_ITS | Encounter Summary ---
Author Organization [facility] Address [address] [place] [address] Care Team Providers Care Peer Educator Name Role Phone Masoud Mehta MD Primary Care Provider [phone] Marybel Perera MD Unavailable [phone] Encounter Details Date Type Department Care Team (Late st Contact Info) Description 04/11/2021 Scanned Document [facility] Neurosurgery [place] 85 [facility] [address] [place] [phone] Marybel Perera MD 85 [facility] [place] [address] [place] [address] Social History Tobacco Use Types Packs/Day Years [...] on filedocumented in this encounter Care Teams Peer Educator Relationship Specialty Start Date End Date Masoud Mehta MD [address] [place] [address] PCP - General 09/22/19 Marybel Perera MD [address] [place] [address] Surgery, Neurosurgery 06/06/21 documented as of this encounter
--- OUTSIDE RECORDS SUMMARY | 2025-02-18 11:50 | XMS_ITS | Encounter Summary ---
Author Organization [facility] Address [address] [place] [address] Care Team Providers Care Yoga Teacher Name Role Phone Masoud Mehta MD Primary Care Provider [phone] Marybel Perera MD Unavailable [phone] Encounter Details Date Type Department Care Team (Late st Contact Info) Description 04/18/2021 Scanned Document [facility] Neurosurgery [place] [employer] 85 [facility] [address] [place] [phone] Marybel Perera MD 85 [facility] [place] [address] [place] [address] Social History Tobacco Use Types Packs/Day Years [...] on filedocumented in this encounter Care Teams Yoga Teacher Relationship Specialty Start Date End Date Masoud Mehta MD [address] [place] [address] PCP - General 09/22/19 Marybel Perera MD [address] [place] [address] Surgery, Neurosurgery 06/06/21 documented as of this encounter
--- OUTSIDE RECORDS SUMMARY | 2025-02-18 11:50 | XMS_ITS | Encounter Summary ---
Author Organization [facility] Address [address] [place] [address] Care Team Providers Care Permit Technician Name Role Phone Masoud Mehta MD Primary Care Provider [phone] Marybel Perera MD Unavailable [phone] Encounter Details Date Type Department Care Team (Late st Contact Info) Description 03/09/2021 Scanned Document [facility] Neurosurgery [place] 85 [facility] [address] [place] [phone] Marybel Perera MD 85 [facility] [place] [address] [place] [address] Social History Tobacco Use Types Packs/Day Years [...] on filedocumented in this encounter Care Teams Permit Technician Relationship Specialty Start Date End Date Masoud Mehta MD 84 [place] [address] PCP - General 09/22/19 Marybel Perera MD [address] [address] Surgery, Neurosurgery 06/06/21 documented as of this encounter
--- OUTSIDE RECORDS SUMMARY | 2025-02-18 11:50 | XMS_ITS | Encounter Summary ---
Author Organization [facility] Address [address] [place] [address] Care Team Providers Care Metal Sprayer Protective Coating Name Role Phone Masoud Mehta MD Primary Care Provider [phone] Marybel Perera MD Unavailable [phone] Encounter Details Date Type Department Care Team (Late st Contact Info) Description 12/30/2020 Scanned Document [facility] Neurosurgery [place] 85 [facility] [address] [place] [phone] Marybel Perera MD 85 [facility] [place] [address] [place] [address] Social History Tobacco Use Types Packs/Day Years [...] on filedocumented in this encounter Care Teams Metal Sprayer Protective Coating Relationship Specialty Start Date End Date Masoud Mehta MD [address] [place] [address] PCP - General 09/22/19 Marybel Perera MD [address] [place] [address] Surgery, Neurosurgery 06/06/21 documented as of this encounter
--- OUTSIDE RECORDS SUMMARY | 2025-02-18 11:50 | XMS_ITS | Encounter Summary ---
Author Organization [facility] Address [address] [place] [address] Care Team Providers Care Cafe Or Restaurant Manager Name Role Phone Masoud Mehta MD Primary Care Provider [phone] Marybel Perera MD Unavailable [phone] Encounter Details Date Type Department Care Team (Late st Contact Info) Description 07/03/2022 Scanned Document [facility] NEUROSURGERY SCAN Neurosurgery, Scan Social History Tobacco [...] on filedocumented in this encounter Care Teams Cafe Or Restaurant Manager Relationship Specialty Start Date End Date Masoud Mehta MD [address] [place] [address] PCP - General 09/22/19 Maryebl Perera MD [address] [place] [address] Surgery, Neurosurgery 06/06/21 documented as of this encounter
--- OUTSIDE RECORDS SUMMARY | 2025-02-18 11:50 | XMS_ITS ---
Author Name [facility] Unknown History of Medication Use Medication Directions Dispensed Refills Start Date End Date Stat us sertraline (ZOLOFT) 50 MG tablet Take 1 tablet (50 mg total) by mouth daily. 11/02/2021 active methylPREDNISolone (MEDROL DOSEPAK) 4 MG tablet follow package directions 08/13/2021 active methylPREDNISolone (MEDROL DOSEPAK) 4 MG tablet follow package directions 08/13/2021 active Cholecalciferol (Vitamin D3 Super Strength) 50 MCG (2000 UT) Tab Take 2,000 Units by mouth every morning. active Multiple Vitamins-Minerals (Oncovite) Tab Take 1 tablet by mouth daily. active Problems Problem Status Onset Date Problem Type Date of Resolution Source Spinal stenosis in cervical region active 2021-07-19 [facility]Act [facility] Gastroesophageal reflux disease without esophagitis active 2018-04-17 ProblemAct [facility] Other spondylosis with radiculopathy, cervical region active 2019-09-24 [facility] Anxiety active 2018-04-17 ProblemAct [facility] Neck pain active 2018-04-17 ProblemAct [facility] Ulnar neuropathy of both upper extremities active 2021-01-02 ProblemAct [facility] Cervical radiculopathy active 2019-08-04 ProblemAct [facility] Essential hypertension active 2018-04-17 ProblemAct [facility] Right hand weakness active 2019-08-04 ProblemAct [facility] Status post cervical spinal fusion active EncounterDiagnosisAct [facility] Carpal tunnel syndrome of right wrist active 2021-01-02 ProblemAct [facility] Abnormal sensation of upper extremity active EncounterDiagnosisAct [facility] Postoperative visit active 2019-10-08 ProblemAct [facility] Immunizations Vaccine Date Source Lot Number Status Influenza, Unspecified 08/06/2019 [facility] co mpleted Encounters Encounter Type Encounter Reason Primary Diagnosis Location Date Ambulatory Other symptoms and signs involving the musculoskeletal system Other symptoms and signs involving the musculoskeletal system [facility] 05/27/2023 Ambulatory Spinal stenosis, cervical region [facility] 08/28/2022 Ambulatory Other symptoms a nd signs involving the musculoskeletal system [facility] 06/15/2022 Ambulatory Lesion of ulnar nerve, bilateral upper limbs [facility] 01/30/2022 Ambulatory Other specified postprocedural states [facility] 11/17/2021 Ambulatory Other specified postprocedural states [facility] 08/11/2021 Ambulatory Spinal stenosis, cervical region [facility] 07/19/2021 Ambulatory Encounter for preprocedural laboratory examination [facility] 07/14/2021 Ambulatory Spinal stenosis, cervical region [facility] 07/10/2021 Care Team Organization Name Specialty Phone Email Start Date End Da te [facility]RIC[facility] REBOLLEDO Primary [facility] 08/28/2022 [facility] REBOLLEDO Primary Care 07/19/2021 08/28/20
--- OUTSIDE RECORDS SUMMARY | 2025-02-18 11:51 | XMS_ITS | Encounter Summary ---
Author Organization [facility] Address [address] [place] [address] Care Team Providers Care Cath Lab Nurse Name Role Phone Shakira Young NP Primary Care Provider [phone] Masoud Mehta MD Primary Care Provider [phone] Marybel Perera MD Unavailable [phone] Encounter Details Date Type Department Care Team (Late st Contact Info) Description 09/10/2019 Scanned Document [facility] Neurosurgery [address] [address] Marybel Perera MD 85 [facility] [place] [address] [place] [address] Social History Tobacco Use Types Packs/Day Years Used Date Smoking Tobacco: Never Sex and Gender Information Value Date Recorded Sex Assigned at Not on file Legal Sex Male 10:59 AM EDT Gender Identity Male 03/07/2021 6:53 AM EDT Sexual Orientation Heterosexual (straight) 03/07 6:53 AM EDT documented as of this encounter Plan of Treatment Not on file documented as of this encounter Visit Diagnoses Not on filedocumented in this encounter Care Teams Cath Lab Nurse Relationship Specialty Start Date End Date Shakira Young NP 30 [place] [address] PCP - General Family Medicine 07/30/19 09/21/19 Masoud Mehta MD 84 [place] [address] PCP - General 09/22/19 Marybel Perera MD [address] [address] Surgery, Neurosurgery 06/06/21 documented as of this encounter
--- OUTSIDE RECORDS SUMMARY | 2025-02-18 11:51 | XMS_ITS | Encounter Summary ---
Author Organization [facility] Address [address] [place] [address] Care Team Providers Care Practice Billing Associate Name Role Phone Masoud Mehta MD Primary Care Provider [phone] Marybel Perera MD Unavailable [phone] Encounter Details Date Type Department Care Team (Late st Contact Info) Description 07/28/2021 Scanned Document [facility] Neurosurgery [place] 85 [facility] [address] [place] [phone] Marybel Perera MD 85 [facility] [place] [address] [place] [address] Social History Tobacco Use Types Packs/Day Years Used Date Smoking Tobacco: Never Smokeless Tobacco: Never Alcohol Use Standard Drinks/Week Comments Yes 6 (1 standard drink = 0.6 oz pur e alcohol) couple times a week Sex and Gender Information Value Date Recorded Sex Assigned at Not on file Legal Sex Male 10:59 AM EDT Gender Identity Male 03/07/2021 6:53 AM EDT Sexual Orientation Heterosexual (straight) 03/07 6:53 AM EDT COVID-19 Exposure Response Date Recorded In the last month, have you been in contact with someone who was confirmed or suspected to have Coronavirus / COVID-19? No / Unsure 07/27/2021 4:02 PM EDT documented as of this encounter Plan of Treatment Not on file documented as of this encounter Visit Diagnoses Not on filedocumented in this encounter Care Teams Practice Billing Associate Relationship Specialty Start Date End Date Masoud Mehta MD 84 [place] [address] PCP - General 09/22/19 Marybel Perera MD [address] [address] Surgery, Neurosurgery 06/06/21 documented as of this encounter
--- OUTSIDE RECORDS SUMMARY | 2025-02-18 11:51 | XMS_ITS | Encounter Summary ---
Author Organization [facility] Address [address] [place] [address] Care Team Providers Care Clinical Nutrition Manager Name Role Phone Masoud Mehta MD Primary Care Provider [phone] Marybel Perera MD Unavailable [phone] Encounter Details Date Type Department Care Team (Late st Contact Info) Description 01/08/2020 Scanned Document [facility] Neurosurgery [place] 85 [facility] [address] [place] [phone] Marybel Perera MD 85 [facility] [place] [address] [place] [address] Social History Tobacco Use Types Packs/Day Years [...] have Coronavirus / COVID-19? No / Unsure 01/07/2020 9:52 AM EDT documented as of this encounter Plan of Treatment Not on file documented as of this encounter Visit Diagnoses Not on filedocumented in this encounter Care Teams Clinical Nutrition Manager Relationship Specialty Start Date End Date Masoud Mehta MD 84 [place] [address] PCP - General 09/22/19 Marybel Perera MD [address] [place] [address] Surgery, Neurosurgery 06/06/21 documented as of this encounter
--- OUTSIDE RECORDS SUMMARY | 2025-02-18 11:51 | XMS_ITS | Encounter Summary ---
Author Organization [facility] Address [address] [place] [address] Care Team Providers Care Lead Mason Tender Name Role Phone Masoud Mehta MD Primary Care Provider [phone] Marybel Perera MD Unavailable [phone] Encounter Details Date Type Department Care Team (Late st Contact Info) Description 03/02/2022 Scanned Document [facility] NEUROSURGERY SCAN Neurosurgery, Scan Social History Tobacco [...] on filedocumented in this encounter Care Teams Lead Mason Tender Relationship Specialty Start Date End Date Masoud Mehta MD [address] [place] [address] PCP - General 09/22/19 Marybel Perera MD [address] [place] [address] Surgery, Neurosurgery 06/06/21 documented as of this encounter
--- OUTSIDE RECORDS SUMMARY | 2025-02-18 11:51 | XMS_ITS | Clinical Summary ---
Author Organization [facility] it Address [address] [place] [address] Care Team Providers Care Home Health Care Social Worker Name Role Phone Unavailable Primary Care Provider Unavailabl e Social History Tobacco Use Types Packs/Day Years Used Date Smoking Tobacco: Never Assessed Sex and Gender Information Value Date Recorded Sex Assigned at Not on file Legal Sex Male 12:09 PM EST Gender Identity Not on file Sexual Orientation Not on file Plan of Treatment Health Maintenance Due Date Last Done Comments DTaP,Tdap,and Td Vaccines (1 - Tdap) 01/30/1991 Hepatitis B Vaccines (1 of 3 - 19+ 3-dose series) 01/30/1991 Pneumococcal Vaccine: 50+ Ye ars (1 of 1 - PCV) 01/30/2022 Zoster Vaccines (1 of 2) 01/30/2022 COVID-19 Vaccine (1 - 2023-2 5 season) 2024 Influenza Vaccine (Season Ended) 2025 HIB Vaccines Aged Out No longer eligi ble based on patient's age to complete this topic HPV Vaccines Aged Out No longer eligi ble based on patient's age to complete this topic Hepatitis A Vaccines Aged Out No long er eligible based on patient's age to complete this topic IPV Vaccines Aged Out No longer eligi ble based on patient's age to complete this topic MMR Vaccines Aged Out No longer eligi ble based on patient's age to complete this topic Meningococcal ACWY Vaccine Aged Out N o longer eligible based on patient's age to complete this topic Meningococcal B Vaccine Aged Out No l onger eligible based on patient's age to complete this topic Pneumococcal Vaccine: Pediat rics (0 to 5 Years) and At-Risk Patients (6 to 64 Years) Aged Out No longer eligible b ased on patient's age to complete this topic RSV Immunization Patients Un rivera 20 months Aged Out No longer eligible b ased on patient's age to complete this topic Varicella Vaccines Aged Out No longer eligible based on patient's age to complete this topic
== END 2025-02-18 11:37 | disposition home or self-care (01) ==
LOC: HO.HOS 10:44
PROVIDERS: PCP Family Medicine; Visit Provider Physician Assistant
DX: S86.012A Strain of left Achilles tendon, initial encounter (principal)
CPT/HCPCS: 99204